=== PATIENT | female | born 1965 | race Hispanic/Latino ===

== ENCOUNTER 2021-11-11 11:22 | Inpatient (IN) | payer MEDICARE ==
--- NOTE | 2021-11-12 09:58 | History and Physical Report ---
GP History & Physical - History of Present Illness Date of admission: 11/11/21 Date of Examination: 11/12/21 Reason for Admission: Danger to self, Failure of Outpatient Treatment, Severe anxiety/depression History of Present Illness: The patient was seen today. She was admitted to [facility] for command auditory hallucinations telling her to kill herself and her grandchildren. During the evaluation the patient says "I can't focus and I'm hearing voices." She says "they were telling me to harm myself and my family, I guess." She says she has a history of Bipolar and has been off her meds. She says she is depressed. The patient says her doctor took her off and she doesn't know why. She says she hasn't been sleeping. She denies SI/HI, but says "it was the voices." The patient denies any illicit drug use, alcohol or nicotine. Psych History Diagnoses: Bipolar Suicide attempts or Self-harm behavior: Denies Prior psychiatric hospitalizations: Yes Substance Abuse history: Denies Previous psychiatric medications tried: could not recall Outpatient treatment: Denies at present PAST MEDICAL HISTORY: unknown Family Psychiatric History: None reported or documented SOCIAL HISTORY Marital Status: Living Arrangements: with daughter Employment Status: unemployed Access to guns/weapons: Denies Education: History of Abuse: none reported Legal History: none reported REVIEW OF SYSTEMS Constitutional: Negative for weight loss ENT: Negative for stridor Respiratory: Negative for cough or hemoptysis All other systems reviewed and are negative MENTAL STATUS EXAMINATION General Appearance and Behavior: Age appropriate, good hygiene, wearing appropriate clothes, calm, cooperative Cooperation: Participating/engaged Psychomotor Behavior: Tremors Mood: depressed Affect and affective range: congruent with mood Thought Process: illogical Thought Content: hallucinations Speech: Normal volume, Regular rate and rhythm, Suicidal Ideation: Yes Homicidal Ideation: Denies Hallucinations: Auditory Delusions: None elicited Impulse Control: impaired Insight and Judgment: poor insight and judgment, Memory: abnormal Attention: Normal Orientation: Alert, oriented Assessment and Plan (1) Bipolar Disorder Current Visit: Yes Status: Acute Treatment Plan Patient admitted for inpatient psychiatric evaluation, medication adjustment and close monitoring The patient's behavior, mood, sleep and appetite will be closely monitored. Patient enrolled in individual and group therapeutic sessions and encouraged to attend. Patient provided with a safe and structured environment. Patient's physical health needs will be addressed by the Hospitalist. Hospitalist Consulted Labs including CBC, CMP, Lipid profile and Hemoglobin A1C levels ordered for baseline reference Social Assessment will be completed and the Conventional Underwriter will work with patient and family to ensure a suitable and safe disposition Medication adjustment will be made as clinically indicated Continued home meds Start Abilify 5mg po daily Usual Wellness Protestant/Preservation: - Start Trazodone 50 mg po QHS & 50 mg po QHS PRN between 10 PM & 2 AM for insomnia - Start Melatonin 5 mg po QHS to promote circadian rhythm The patient agreed on the treatment plan, understood the risk, benefit, alternative treatment, potential consequence of no treatment, and gave informed consent. Estimated days: Post hospital care: primary care provider, psychiatric provider Case staffed with Dr. Villatoro Legal Status: Voluntary Reaction to Hospitalization: Accepting Medications and Allergies Allergies Allergy/AdvReac Type Severity Reaction Status Date / Time No Known Allergies Allergy Verified 11/12/21 00:28 Home Medications Medication Instructions Recorded Confirmed Last Taken Type Albuterol Sulfate [Proair 2 puff IH Q4HR PRN 11/12/21 11/12/21 Unknown History Digihaler] AtorvaSTATin [Lipitor] 20 mg PO QHS 11/12/21 11/12/21 Unknown History Dexlansoprazole [Dexilant] 60 mg PO QDAY 11/12/21 11/12/21 Unknown History Furosemide [Lasix] 20 mg PO QDAY 11/12/21 11/12/21 Unknown History Meloxicam [Mobic] 15 mg PO DAILY 11/12/21 11/12/21 Unknown History Sertraline [Zoloft] 100 mg PO QDAY 11/12/21 11/12/21 Unknown History lisinopriL [Zestril TAB] 40 mg PO QDAY 11/12/21 11/12/21 Unknown History Results - Results Labs/Vitals: Last Vital Signs Temp 98.3 F 11/12/21 00:15 Pulse 70 11/12/21 00:15 Resp 17 11/12/21 00:15 BP 122/51 11/12/21 00:15 Pulse Ox 95 11/12/21 00:15 Physical Examination - Constitutional Vitals: Vital Signs Temp Pulse Resp BP Pulse Ox 98.3 F 70 17 122/51 95 11/12/21 00:15 11/12/21 00:15 11/12/21 00:15 11/12/21 00:15 11/12/21 00:15 Temperature -Last 24 Hours Temperature 98.3 F Mental Status Exam - Vital signs Last Vital Signs Temp 98.3 F 11/12/21 00:15 Pulse 70 11/12/21 00:15 Resp 17 11/12/21 00:15 BP 122/51 11/12/21 00:15 Pulse Ox 95 11/12/21 00:15 Physician Certification - Certification Statement Physician Certification Statement: This is an acknowledgement statement that TIANNA MONROY is a 56 year old F who requires inpatient psychiatric admission for treatment which could reasonably be expected to improve the patient's condition for Estimated period of time patient will need to remain in the hospital: [ ] Plan for post-hospital care: [ ]
[2021-11-12] MEDS ORDERED: NON-FORMULARY EACH (Albuterol Sulfate [Proair Digihaler] 90 MCG Aer.Pw.Bas) IH PRN (10:05)
[2021-11-12] MEDS ORDERED: NON-FORMULARY EACH (Meloxicam [Mobic] 15 MG Tablet) PO SCH (10:15)
[2021-11-12] MEDS ORDERED: DEXLANSOPRAZOLE 60 MG PO SCH (10:15)
[2021-11-12] MEDS ORDERED: ALBUTEROL 2.5 MG/3 ML NEBU IH PRN ×2 (10:18→12:00)
[2021-11-12] MEDS: SERTRALINE 100 MG TAB PO SCH (12:36)
[2021-11-12] MEDS: ARIPiprazole 5 MG TAB PO SCH (12:36)
[2021-11-12] MEDS: FUROSEMIDE 20 MG TAB PO SCH (12:36)
[2021-11-12] MEDS: PANTOPRAZOLE 40 MG TAB PO SCH (12:42)
[2021-11-12] MEDS: LISINOPRIL 40 MG TAB PO SCH (16:00)
[2021-11-12] MEDS: MELOXICAM 7.5 MG TAB PO SCH (17:14)
--- NOTE | 2021-11-13 09:07 | Progress Note ---
Subjective Date of service: 11/13/21 Principal diagnosis: Bipolar Disorder Subjective Comment: The patient was seen today. She says she is doing alright. She says she's still hearing the voices telling her crazy stuff. She could not tell me what exactly. She denies SI/HI or hallucinations of any kind. REVIEW OF SYSTEMS Constitutional: Negative for weight loss ENT: Negative for stridor Respiratory: Negative for cough or hemoptysis All other systems reviewed and are negative MENTAL STATUS EXAMINATION General Appearance and Behavior: Age appropriate, good hygiene, wearing appropriate clothes, calm, cooperative Cooperation: Participating/engaged Psychomotor Behavior: Tremors Mood: depressed Affect and affective range: congruent with mood Thought Process: illogical Thought Content: hallucinations Speech: Normal volume, Regular rate and rhythm, Suicidal Ideation: Yes Homicidal Ideation: Denies Hallucinations: Auditory Delusions: None elicited Impulse Control: impaired Insight and Judgment: poor insight and judgment, Memory: abnormal Attention: Normal Orientation: Alert, oriented Assessment and Plan (1) Bipolar Disorder Current Visit: Yes Status: Acute Treatment Plan Patient admitted for inpatient psychiatric evaluation, medication adjustment and close monitoring The patient's behavior, mood, sleep and appetite will be closely monitored. Patient enrolled in individual and group therapeutic sessions and encouraged to attend. Patient provided with a safe and structured environment. Patient's physical health needs will be addressed by the Hospitalist. Hospitalist Consulted Labs including CBC, CMP, Lipid profile and Hemoglobin A1C levels ordered for baseline reference Social Assessment will be completed and the Technology Specialist will work with patient and family to ensure a suitable and safe disposition Medication adjustment will be made as clinically indicated Abilify 5mg po daily Usual Wellness Hindu/Preservation: - Start Trazodone 50 mg po QHS & 50 mg po QHS PRN between 10 PM & 2 AM for insomnia - Start Melatonin 5 mg po QHS to promote circadian rhythm The patient agreed on the treatment plan, understood the risk, benefit, alternative treatment, potential consequence of no treatment, and gave informed consent. Estimated days: Post hospital care: primary care provider, psychiatric provider Case staffed with Dr. Villatoro Medications and Allergies Allergies Allergy/AdvReac Type Severity Reaction Status Date / Time No Known Allergies Allergy Verified 11/12/21 00:28 Home Medications Medication Instructions Recorded Confirmed Last Taken Type Albuterol Sulfate [Proair 2 puff IH Q4HR PRN 11/12/21 11/12/21 Unknown History Digihaler] AtorvaSTATin [Lipitor] 20 mg PO QHS 11/12/21 11/12/21 Unknown History Dexlansoprazole [Dexilant] 60 mg PO QDAY 11/12/21 11/12/21 Unknown History Furosemide [Lasix] 20 mg PO QDAY 11/12/21 11/12/21 Unknown History Meloxicam [Mobic] 15 mg PO DAILY 11/12/21 11/12/21 Unknown History Sertraline [Zoloft] 100 mg PO QDAY 11/12/21 11/12/21 Unknown History lisinopriL [Zestril TAB] 40 mg PO QDAY 11/12/21 11/12/21 Unknown History Active Meds: Active Medications Albuterol (Albuterol 2.5 Mg/3 Ml Nebu) 2.5 mg IH Q4HRT PRN PRN Reason: Shortness Of Breath Aripiprazole (Aripiprazole 5 Mg Tab) 5 mg PO QDAY [facility] Last Admin: 11/12/21 12:36 Dose: 5 mg Atorvastatin Calcium (Atorvastatin 20 Mg Tab) 20 mg PO QHS [facility] Last Admin: 11/12/21 21:07 Dose: 20 mg Furosemide (Furosemide 20 Mg Tab) 20 mg PO QDAY [facility] Last Admin: 11/12/21 12:36 Dose: 20 mg Lisinopril (Lisinopril 40 Mg Tab) 40 mg PO QDAY [facility] Last Admin: 11/12/21 16:00 Dose: Not Given Meloxicam (Meloxicam 7.5 Mg Tab) 15 mg PO QDAY [facility] Last Admin: 11/12/21 17:14 Dose: 15 mg Pantoprazole Sodium (Pantoprazole 40 Mg Tab) 40 mg PO DAILY [facility] Last Admin: 11/12/21 12:42 Dose: 40 mg Sertraline HCl (Sertraline 100 Mg Tab) 100 mg PO QDAY [facility] Last Admin: 11/12/21 12:36 Dose: 100 mg Results - Results Labs/Vitals: Last Vital Signs Temp 98.5 F 11/12/21 20:00 Pulse 71 11/12/21 20:00 Resp 16 11/12/21 20:00 BP 122/41 11/12/21 20:00 Pulse Ox 98 11/12/21 20:00
--- NOTE | 2021-11-13 10:11 | Consultation ---
History of Present Illness - Reason for Consult Consult date: 11/12/21 medical Mx - History of Present Illness 56 YO Female with COPD, HTN, HLD, OA, QASIM, MDD, GERD admitted [facility] for psychiatric stabilization. She was admitted [facility] for command auditory hallucinations telling her to kill herself and her grandchildren. Hospitalist service was consulted by Dr. Appiah for medical management. Patient seen and evaluated in the recreation room. Patient denies fever, chill s, chest pain, palpitation, productive cough, skin rash, recent contact, known exposure to COVID-19. Patient resting comfortably. No reported nursing events. The patient denies any illicit drug use, alcohol or nicotine. Past medical History: h/o COPD, HTN, HLD, OA, QASIM, MDD, GERD Past surgical History: none Social History: Lives with daughter, denies any smoking, drinking and elicit drug abuse. Family History: Significant for HTN Review of System: Constitutional: no fever, no chills, no weight loss Ears, eyes, nose, mouth and throat: no nasal congestion, no nasal discharge, no sinus pressure, no vision change, no red eye. Neck: No neck pain or rigidity. Cardiovascular: No chest pain, no orthopnea, no palpitations, no leg swelling Respiratory: No shortness of breath, no cough, no congestion, no wheezing Gastrointestinal: no abdominal pain, no nausea, no vomiting Genitourinary : no dysuria, no hematuria Musculoskeletal: no joint swelling or muscle ache Integumentary: no rash, no pruritis Neurological: no parathesias, no numbness, no tingling Endocrine: no cold or heat intolerance, no polyuria or polydipsia Hematologic/Lymphatic: no easy bruising, no easy bleeding, no gland swelling Allergic/Immunologic: no urticaria, no angioedema. Physical exam: GENERAL: well-developed and well-nourished AAF w/o any acute distress HEENT: Normocephalic. Atraumatic. No conjunctival congestion or icterus. Patient has moist mucous membranes. NECK: Supple. Trachea midline. CHEST/LUNGS: Clear to auscultated bilaterally, breathing nonlabored. No wheezes crackles or rhonchi. HEART/CARDIOVASCULAR: Regular in rate and rhythm. S1 and S2 positive. ABDOMEN: Abdomen is soft, nontender. Patient has normal bowel sounds. SKIN: There is no rash. Warm and dry. NEURO: No focal motor deficit. Follows command. MUSCULOSKELETAL: No joint effusion or tenderness. EXTRIMITY: No edema, no cyanosis or clubbing. PSYCH: Cooperative. Assessment and plan: --Bipolar disorder, Mx per primary -- COPD (chronic obstructive pulmonary disease) Current Visit: Yes Status: Acute Plan to address problem: Supportive care, pulmonary toilet, supplemental oxygen as clinically indicated. -- HTN (hypertension) Current Visit: Yes Status: Acute Qualifiers: Hypertension type: primary hypertension Qualified Code(s): I10 - Essential (primary) hypertension Plan to address problem: Monitor blood pressure nightly. Continue medical management. -- QASIM (generalized anxiety disorder) Current Visit: Yes Status: Acute Plan to address problem: Benzodiazepine therapy as clinically indicated. -- Advance care planning Current Visit: Yes Status: Acute Plan to address problem: Disease education conducted, care plan discussed, diagnoses discussed, prognosis discussed, patient is full code. Patient knowledges understanding agreement with care plan, +30 minutes. Medications and Allergies Allergies Allergy/AdvReac Type Severity Reaction Status Date / Time No Known Allergies Allergy Verified 11/12/21 00:28 Home Medications Medication Instructions Recorded Confirmed Last Taken Type Albuterol Sulfate [Proair 2 puff IH Q4HR PRN 11/12/21 11/12/21 Unknown History Digihaler] AtorvaSTATin [Lipitor] 20 mg PO QHS 11/12/21 11/12/21 Unknown History Dexlansoprazole [Dexilant] 60 mg PO QDAY 11/12/21 11/12/21 Unknown History Furosemide [Lasix] 20 mg PO QDAY 11/12/21 11/12/21 Unknown History Meloxicam [Mobic] 15 mg PO DAILY 11/12/21 11/12/21 Unknown History Sertraline [Zoloft] 100 mg PO QDAY 11/12/21 11/12/21 Unknown History lisinopriL [Zestril TAB] 40 mg PO QDAY 11/12/21 11/12/21 Unknown History Tiotropium [Spiriva] 2 mcg IH DAILY 11/13/21 11/13/21 Unknown History Active Meds: Active Medications Albuterol (Albuterol 2.5 Mg/3 Ml Nebu) 2.5 mg IH Q4HRT PRN PRN Reason: Shortness Of Breath Aripiprazole (Aripiprazole 5 Mg Tab) 5 mg PO QDAY [facility] Last Admin: 11/12/21 12:36 Dose: 5 mg Atorvastatin Calcium (Atorvastatin 20 Mg Tab) 20 mg PO QHS [facility] Last Admin: 11/12/21 21:07 Dose: 20 mg Furosemide (Furosemide 20 Mg Tab) 20 mg PO QDAY [facility] Last Admin: 11/12/21 12:36 Dose: 20 mg Lisinopril (Lisinopril 40 Mg Tab) 40 mg PO QDAY [facility] Last Admin: 11/12/21 16:00 Dose: Not Given Meloxicam (Meloxicam 7.5 Mg Tab) 15 mg PO QDAY [facility] Last Admin: 11/12/21 17:14 Dose: 15 mg Pantoprazole Sodium (Pantoprazole 40 Mg Tab) 40 mg PO DAILY [facility] Last Admin: 11/12/21 12:42 Dose: 40 mg Sertraline HCl (Sertraline 100 Mg Tab) 100 mg PO QDAY [facility] Last Admin: 11/12/21 12:36 Dose: 100 mg Exam - Constitutional Vitals: Temp Pulse Resp BP Pulse Ox 98.5 F 71 16 122/41 98 11/12/21 20:00 11/12/21 20:00 11/12/21 20:00 11/12/21 20:00 11/12/21 20:00
[2021-11-13] MEDS: ARIPiprazole 5 MG TAB PO SCH (10:24)
[2021-11-13] MEDS: SERTRALINE 100 MG TAB PO SCH (10:24)
[2021-11-13] MEDS: MELOXICAM 7.5 MG TAB PO SCH (10:24)
[2021-11-13] MEDS: FUROSEMIDE 20 MG TAB PO SCH (10:24)
[2021-11-13] MEDS: LISINOPRIL 40 MG TAB PO SCH (10:24)
[2021-11-13] MEDS: PANTOPRAZOLE 40 MG TAB PO SCH (10:25)
[2021-11-13] MEDS: ACETAMINOPHEN 325 MG TAB PO PRN (21:58)
--- NOTE | 2021-11-14 09:20 | Progress Note ---
Subjective Date of service: 11/14/21 Principal diagnosis: Bipolar Disorder Subjective Comment: The patient was seen today. She is lying in bed but awake. She says she's doing okay. The patient says she slept good. She denies SI/HI or hallucinations of any kind. REVIEW OF SYSTEMS Constitutional: Negative for weight loss ENT: Negative for stridor Respiratory: Negative for cough or hemoptysis All other systems reviewed and are negative MENTAL STATUS EXAMINATION General Appearance and Behavior: Age appropriate, good hygiene, wearing appropriate clothes, calm, cooperative Cooperation: Participating/engaged Psychomotor Behavior: Tremors Mood: depressed Affect and affective range: congruent with mood Thought Process: goal directed Thought Content: None Speech: Normal volume, Regular rate and rhythm, Suicidal Ideation: Denies Homicidal Ideation: Denies Hallucinations: Denies Delusions: None elicited Impulse Control: impaired Insight and Judgment: poor insight and judgment, Memory: abnormal Attention: Normal Orientation: Alert, oriented Assessment and Plan (1) Bipolar Disorder Current Visit: Yes Status: Acute Treatment Plan Patient admitted for inpatient psychiatric evaluation, medication adjustment and close monitoring The patient's behavior, mood, sleep and appetite will be closely monitored. Patient enrolled in individual and group therapeutic sessions and encouraged to attend. Patient provided with a safe and structured environment. Patient's physical health needs will be addressed by the Hospitalist. Hospitalist Consulted Labs including CBC, CMP, Lipid profile and Hemoglobin A1C levels ordered for baseline reference Social Assessment will be completed and the Host/Hostess Restaurant will work with p atient and family to ensure a suitable and safe disposition Medication adjustment will be made as clinically indicated Continue Abilify 5mg po daily Usual Wellness Temple/Preservation: - Start Trazodone 50 mg po QHS & 50 mg po QHS PRN between 10 PM & 2 AM for insomnia - Start Melatonin 5 mg po QHS to promote circadian rhythm The patient agreed on the treatment plan, understood the risk, benefit, alternative treatment, potential consequence of no treatment, and gave informed consent. Estimated days: Post hospital care: primary care provider, psychiatric provider Case staffed with Dr. Villatoro Medications and Allergies Allergies Allergy/AdvReac Type Severity Reaction Status Date / Time No Known Allergies Allergy Verified 11/12/21 00:28 Home Medications Medication Instructions Recorded Confirmed Last Taken Type Albuterol Sulfate [Proair 2 puff IH Q4HR PRN 11/12/21 11/12/21 Unknown History Digihaler] AtorvaSTATin [Lipitor] 20 mg PO QHS 11/12/21 11/12/21 Unknown History Dexlansoprazole [Dexilant] 60 mg PO QDAY 11/12/21 11/12/21 Unknown History Furosemide [Lasix] 20 mg PO QDAY 11/12/21 11/12/21 Unknown History Meloxicam [Mobic] 15 mg PO DAILY 11/12/21 11/12/21 Unknown History Sertraline [Zoloft] 100 mg PO QDAY 11/12/21 11/12/21 Unknown History lisinopriL [Zestril TAB] 40 mg PO QDAY 11/12/21 11/12/21 Unknown History Tiotropium [Spiriva] 2 mcg IH DAILY 11/13/21 11/13/21 Unknown History Active Meds: Active Medications Acetaminophen (Acetaminophen 325 Mg Tab) 650 mg PO Q6H PRN PRN Reason: Pain, Mild (1-3) Last Admin: 11/13/21 21:58 Dose: 650 mg Albuterol (Albuterol 2.5 Mg/3 Ml Nebu) 2.5 mg IH Q4HRT PRN PRN Reason: Shortness Of Breath Last Admin: 11/13/21 12:45 Dose: 2.5 mg Aripiprazole (Aripiprazole 5 Mg Tab) 5 mg PO QDAY [facility] Last Admin: 11/13/21 10:24 Dose: 5 mg Atorvastatin Calcium (Atorvastatin 20 Mg Tab) 20 mg PO QHS [facility] Last Admin: 11/13/21 21:59 Dose: 20 mg Furosemide (Furosemide 20 Mg Tab) 20 mg PO QDAY [facility] Last Admin: 11/13/21 10:24 Dose: 20 mg Lisinopril (Lisinopril 40 Mg Tab) 40 mg PO QDAY [facility] Last Admin: 11/13/21 10:24 Dose: 40 mg Meloxicam (Meloxicam 7.5 Mg Tab) 15 mg PO QDAY [facility] Last Admin: 11/13/21 10:24 Dose: 15 mg Pantoprazole Sodium (Pantoprazole 40 Mg Tab) 40 mg PO DAILY [facility] Last Admin: 11/13/21 10:25 Dose: 40 mg Sertraline HCl (Sertraline 100 Mg Tab) 100 mg PO QDAY [facility] Last Admin: 11/13/21 10:24 Dose: 100 mg Tiotropium [place] (Tiotropium 18 Mcg Cap Inhalation) 1 puff IH Q24HRT [facility] Results - Results Labs/Vitals: Last Vital Signs Temp 97.5 F L 11/14/21 07:47 Pulse 70 11/14/21 07:47 Resp 18 11/14/21 07:47 BP 112/55 11/14/21 07:47 Pulse Ox 97 11/14/21 07:47
[2021-11-14] MEDS: TIOTROPIUM 18 MCG CAP INHALATION IH SCH (09:50)
[2021-11-14] MEDS: LISINOPRIL 40 MG TAB PO SCH (09:51)
[2021-11-14] MEDS: FUROSEMIDE 20 MG TAB PO SCH (09:51)
[2021-11-14] MEDS: ARIPiprazole 5 MG TAB PO SCH (09:51)
[2021-11-14] MEDS: MELOXICAM 7.5 MG TAB PO SCH (09:51)
[2021-11-14] MEDS: SERTRALINE 100 MG TAB PO SCH (09:51)
[2021-11-14] MEDS: PANTOPRAZOLE 40 MG TAB PO SCH (09:51)
--- NOTE | 2021-11-14 19:39 | Progress Note ---
Assessment and Plan - Patient Problems (1) COPD (chronic obstructive pulmonary disease) Current Visit: Yes Status: Acute Plan to address problem: Supportive care, pulmonary toilet, supplemental oxygen as clinically indicated. (2) HTN (hypertension) Current Visit: Yes Status: Acute Qualifiers: Hypertension type: primary hypertension Qualified Code(s): I10 - Essential (primary) hypertension Plan to address problem: Monitor blood pressure nightly. Continue medical management. (3) QASIM (generalized anxiety disorder) Current Visit: Yes Status: Acute Plan to address problem: Benzodiazepine therapy as clinically indicated. (4) MDD (major depressive disorder) Current Visit: Yes Status: Acute Qualifiers: Major depression episode severity: unspecified Plan to address problem: Supportive care, continue medical management as per mental health team (5) Advance care planning Current Visit: Yes Status: Acute Plan to address problem: Disease education conducted, care plan discussed, diagnoses discussed, prognosis discussed, patient is full code. Patient knowledges understanding agreement with care plan, +30 minutes. History Interval history: 56 YO Female with COPD, HTN, HLD, OA, QASIM, MDD, GERD admitted [facility] for psychiatric stabilization. Consult placed with Dr. Appiah for medical management. Patient seen and evaluated in the recreation room. Patient denies fever, chills, chest pain, palpitation, productive cough, skin rash, recent contact, known exposure to COVID-19. Patient resting comfortably. No reported nursing events. Hospitalist Physical - Constitutional Vitals: Temp Pulse Resp BP Pulse Ox 97.5 F L 70 19 112/55 97 11/14/21 07:47 11/14/21 09:51 11/14/21 09:51 11/14/21 09:51 11/14/21 07:47 General appearance: Present: no acute distress - EENT Eyes: Present: PERRL ENT: hearing intact - Neck Neck: Present: supple - Respiratory Respiratory effort: normal Respiratory: bilateral: diminished - Cardiovascular Rhythm: regular Heart Sounds: Present: S1 & S2 - Extremities Extremities: no ischemia Peripheral Pulses: within normal limits - Abdominal General gastrointestinal: soft, non-tender, non-distended - Integumentary Integumentary: Present: clear, dry - Psychiatric Psychiatric: cooperative - Neurologic Neurologic: CNII-XII intact Results Dyre/IV: Voiding Method Toilet Active Medications - Current Medications Current Medications: Generic Name Dose Route Start Last Admin Trade Name Freq PRN Reason Stop Dose Admin Acetaminophen 650 mg 11/13/21 20:58 11/13/21 21:58 Acetaminophen 325 Mg Tab PO 650 mg Q6H PRN Administration Pain, Mild (1-3) Albuterol 2.5 mg 11/12/21 12:00 11/13/21 12:45 Albuterol 2.5 Mg/3 Ml Nebu IH 2.5 mg Q4HRT PRN Administration Shortness Of Breath Aripiprazole 5 mg 11/12/21 11:00 11/14/21 09:51 Aripiprazole 5 Mg Tab PO 5 mg QDAY [facility] Administration Atorvastatin Calcium 20 mg 11/12/21 22:00 11/13/21 21:59 Atorvastatin 20 Mg Tab PO 20 mg QHS [facility] Administration Furosemide 20 mg 11/12/21 11:00 11/14/21 09:51 Furosemide 20 Mg Tab PO 20 mg QDAY [facility] Administration Lisinopril 40 mg 11/12/21 11:00 11/14/21 09:51 Lisinopril 40 Mg Tab PO Not Given QDAY [facility] Meloxicam 15 mg 11/12/21 11:00 11/14/21 09:51 Meloxicam 7.5 Mg Tab PO 15 mg QDAY [facility] Administration Pantoprazole Sodium 40 mg 11/12/21 11:00 11/14/21 09:51 Pantoprazole 40 Mg Tab PO 40 mg DAILY [facility] Administration Sertraline HCl 100 mg 11/12/21 11:00 11/14/21 09:51 Sertraline 100 Mg Tab PO 100 mg QDAY [facility] Administration Tiotropium [place] 1 puff 11/14/21 09:00 11/14/21 09:50 Tiotropium 18 Mcg Cap Inhalation IH 1 puff Q24HRT [facility] Administration
--- NOTE | 2021-11-15 08:38 | Progress Note ---
Subjective Date of service: 11/15/21 Principal diagnosis: Bipolar Disorder Subjective Comment: 11/15/21: The patient was seen this morning. She states she is doing well. She reports sleep and appetite as good. She reports being depressed and rates as 7/10. The patient complains of constipation stating she last had a bowel movement 4 days ago. She denies any current suicidal/homicidal and denies hallucinations. REVIEW OF SYSTEMS Constitutional: Negative for weight loss ENT: Negative for stridor Respiratory: Negative for cough or hemoptysis All other systems reviewed and are negative MENTAL STATUS EXAMINATION General Appearance and Behavior: Age appropriate, good hygiene, wearing appropriate clothes, calm, cooperative Cooperation: Participating/engaged Psychomotor Behavior: Tremors Mood: depressed Affect and affective range: congruent with mood Thought Process: Goal directed Thought Content: Reality oriented Speech: Normal volume, Regular rate and rhythm, Suicidal Ideation: Denies Homicidal Ideation: Denies Hallucinations: Denies Delusions: None elicited Impulse Control: impaired Insight and Judgment: poor insight and judgment, Memory: abnormal Attention: Normal Orientation: Alert, oriented Assessment and Plan (1) Bipolar Disorder Current Visit: Yes Status: Acute Treatment Plan Patient admitted for inpatient psychiatric evaluation, medication adjustment and close monitoring The patient's behavior, mood, sleep and appetite will be closely monitored. Patient enrolled in individual and group therapeutic sessions and encouraged to attend. Patient provided with a safe and structured environment. Patient's physical health needs will be addressed by the Hospitalist. Hospitalist Consulted Labs including CBC, CMP, Lipid profile and Hemoglobin A1C levels ordered for baseline reference Social Assessment will be completed and the Jewel Bearing Grinder will work with patient and family to ensure a suitable and safe disposition Medication adjustment will be made as clinically indicated Increase Abilify 10mg po daily Usual Wellness [facility]: - Start Trazodone 50 mg po QHS & 50 mg po QHS PRN between 10 PM & 2 AM for insomnia - Start Melatonin 5 mg po QHS to promote circadian rhythm The patient agreed on the treatment plan, understood the risk, benefit, alternative treatment, potential consequence of no treatment, and gave informed consent. Estimated days: Post hospital care: primary care provider, psychiatric provider Case staffed with Dr. Villatoro Medications and Allergies Medications and Allergies Allergies Allergy/AdvReac Type Severity Reaction Status Date / Time No Known Allergies Allergy Verified 11/12/21 00:28 Home Medications Medication Instructions Recorded Confirmed Last Taken Type Albuterol Sulfate [Proair 2 puff IH Q4HR PRN 11/12/21 11/12/21 Unknown History Digihaler] AtorvaSTATin [Lipitor] 20 mg PO QHS 11/12/21 11/12/21 Unknown History Dexlansoprazole [Dexilant] 60 mg PO QDAY 11/12/21 11/12/21 Unknown History Furosemide [Lasix] 20 mg PO QDAY 11/12/21 11/12/21 Unknown History Meloxicam [Mobic] 15 mg PO DAILY 11/12/21 11/12/21 Unknown History Sertraline [Zoloft] 100 mg PO QDAY 11/12/21 11/12/21 Unknown History lisinopriL [Zestril TAB] 40 mg PO QDAY 11/12/21 11/12/21 Unknown History Tiotropium [Spiriva] 2 mcg IH DAILY 11/13/21 11/13/21 Unknown History Active Meds: Active Medications Acetaminophen (Acetaminophen 325 Mg Tab) 650 mg PO Q6H PRN PRN Reason: Pain, Mild (1-3) Last Admin: 11/13/21 21:58 Dose: 650 mg Albuterol (Albuterol 2.5 Mg/3 Ml Nebu) 2.5 mg IH Q4HRT PRN PRN Reason: Shortness Of Breath Last Admin: 11/13/21 12:45 Dose: 2.5 mg Aripiprazole (Aripiprazole 5 Mg Tab) 5 mg PO QDAY [facility] Last Admin: 11/14/21 09:51 Dose: 5 mg Atorvastatin Calcium (Atorvastatin 20 Mg Tab) 20 mg PO QHS [facility] Last Admin: 11/14/21 21:29 Dose: 20 mg Furosemide (Furosemide 20 Mg Tab) 20 mg PO QDAY [facility] Last Admin: 11/14/21 09:51 Dose: 20 mg Lisinopril (Lisinopril 40 Mg Tab) 40 mg PO QDAY [facility] Last Admin: 11/14/21 09:51 Dose: Not Given Meloxicam (Meloxicam 7.5 Mg Tab) 15 mg PO QDAY [facility] Last Admin: 11/14/21 09:51 Dose: 15 mg Pantoprazole Sodium (Pantoprazole 40 Mg Tab) 40 mg PO DAILY [facility] Last Admin: 11/14/21 09:51 Dose: 40 mg Sertraline HCl (Sertraline 100 Mg Tab) 100 mg PO QDAY [facility] Last Admin: 11/14/21 09:51 Dose: 100 mg Tiotropium [place] (Tiotropium 18 Mcg Cap Inhalation) 1 puff IH Q24HRT [facility] Last Admin: 11/14/21 09:50 Dose: 1 puff Results - Results Labs/Vitals: Last Vital Signs Temp 98.9 F 11/14/21 19:28 Pulse 71 11/14/21 19:28 Resp 18 11/14/21 19:28 BP 125/48 11/14/21 19:28 Pulse Ox 95 11/14/21 19:28
[2021-11-15] MEDS: PANTOPRAZOLE 40 MG TAB PO SCH (10:27)
[2021-11-15] MEDS: FUROSEMIDE 20 MG TAB PO SCH (10:27)
[2021-11-15] MEDS: ARIPiprazole 10 MG TAB PO SCH (10:27)
[2021-11-15] MEDS: SERTRALINE 100 MG TAB PO SCH (10:27)
[2021-11-15] MEDS: TIOTROPIUM 18 MCG CAP INHALATION IH SCH (10:28)
[2021-11-15] MEDS: MELOXICAM 7.5 MG TAB PO SCH (10:28)
[2021-11-15] MEDS: LISINOPRIL 40 MG TAB PO SCH (12:06)
[2021-11-16] MEDS: FUROSEMIDE 20 MG TAB PO SCH (09:10)
[2021-11-16] MEDS: ARIPiprazole 10 MG TAB PO SCH (09:10)
[2021-11-16] MEDS: MELOXICAM 7.5 MG TAB PO SCH (09:10)
[2021-11-16] MEDS: LISINOPRIL 40 MG TAB PO SCH (09:11)
[2021-11-16] MEDS: SERTRALINE 100 MG TAB PO SCH (09:11)
[2021-11-16] MEDS: PANTOPRAZOLE 40 MG TAB PO SCH (09:11)
[2021-11-16] MEDS: TIOTROPIUM 18 MCG CAP INHALATION IH SCH (09:13)
--- NOTE | 2021-11-16 09:24 | Progress Note ---
Subjective Date of service: 11/16/21 Principal diagnosis: Bipolar Disorder Subjective Comment: 11/16/21: The patient was seen resting in bed. She states she is not doing well today. Continues to endorse depression rating as 7/10. She denies any current suicidal/homicidal and denies hallucinations. 11/15/21: The patient was seen this morning. She states she is doing well. She reports sleep and appetite as good. She reports being depressed and rates as 7/10. The patient complains of constipation stating she last had a bowel movement 4 days ago. She denies any current suicidal/homicidal and denies hallucinations. REVIEW OF SYSTEMS Constitutional: Negative for weight loss ENT: Negative for stridor Respiratory: Negative for cough or hemoptysis All other systems reviewed and are negative MENTAL STATUS EXAMINATION General Appearance and Behavior: Age appropriate, good hygiene, wearing appropriate clothes, calm, cooperative Cooperation: Participating/engaged Psychomotor Behavior: Tremors Mood: depressed Affect and affective range: congruent with mood Thought Process: Goal directed Thought Content: Reality oriented Speech: Normal volume, Regular rate and rhythm, Suicidal Ideation: Denies Homicidal Ideation: Denies Hallucinations: Denies Delusions: None elicited Impulse Control: impaired Insight and Judgment: poor insight and judgment, Memory: abnormal Attention: Normal Orientation: Alert, oriented Assessment and Plan (1) Bipolar Disorder Current Visit: Yes Status: Acute Treatment Plan Patient admitted for inpatient psychiatric evaluation, medication adjustment and close monitoring The patient's behavior, mood, sleep and appetite will be closely monitored. Patient enrolled in individual and group therapeutic sessions and encouraged to attend. Patient provided with a safe and structured environment. Patient's physical health needs will be addressed by the Hospitalist. Hospitalist Consulted Labs including CBC, CMP, Lipid profile and Hemoglobin A1C levels ordered for baseline reference Social Assessment will be completed and the Product Builder will work with patie nt and family to ensure a suitable and safe disposition Medication adjustment will be made as clinically indicated Increase Abilify 10mg po daily Usual Wellness [facility]: - Start Trazodone 50 mg po QHS & 50 mg po QHS PRN between 10 PM & 2 AM for insomnia - Start Melatonin 5 mg po QHS to promote circadian rhythm The patient agreed on the treatment plan, understood the risk, benefit, alternative treatment, potential consequence of no treatment, and gave informed consent. Estimated days: Post hospital care: primary care provider, psychiatric provider Case staffed with Dr. Villatoro Medications and Allergies Medications and Allergies Medications and Allergies Allergies Allergy/AdvReac Type Severity Reaction Status Date / Time No Known Allergies Allergy Verified 11/12/21 00:28 Home Medications Medication Instructions Recorded Confirmed Last Taken Type Albuterol Sulfate [Proair 2 puff IH Q4HR PRN 11/12/21 11/12/21 Unknown History Digihaler] AtorvaSTATin [Lipitor] 20 mg PO QHS 11/12/21 11/12/21 Unknown History Dexlansoprazole [Dexilant] 60 mg PO QDAY 11/12/21 11/12/21 Unknown History Furosemide [Lasix] 20 mg PO QDAY 11/12/21 11/12/21 Unknown History Meloxicam [Mobic] 15 mg PO DAILY 11/12/21 11/12/21 Unknown History Sertraline [Zoloft] 100 mg PO QDAY 11/12/21 11/12/21 Unknown History lisinopriL [Zestril TAB] 40 mg PO QDAY 11/12/21 11/12/21 Unknown History Tiotropium [Spiriva] 2 mcg IH DAILY 11/13/21 11/13/21 Unknown History Active Meds: Active Medications Acetaminophen (Acetaminophen 325 Mg Tab) 650 mg PO Q6H PRN PRN Reason: Pain, Mild (1-3) Last Admin: 11/13/21 21:58 Dose: 650 mg Albuterol (Albuterol 2.5 Mg/3 Ml Nebu) 2.5 mg IH Q4HRT PRN PRN Reason: Shortness Of Breath Last Admin: 11/13/21 12:45 Dose: 2.5 mg Aripiprazole (Aripiprazole 10 Mg Tab) 10 mg PO QDAY [facility] Last Admin: 11/16/21 09:10 Dose: 10 mg Atorvastatin Calcium (Atorvastatin 20 Mg Tab) 20 mg PO QHS [facility] Last Admin: 11/15/21 21:05 Dose: 20 mg Bisacodyl (Bisacodyl 5 Mg Tab) 10 mg PO QDAY PRN PRN Reason: Constipation Last Admin: 11/15/21 15:49 Dose: 10 mg Furosemide (Furosemide 20 Mg Tab) 20 mg PO QDAY [facility] Last Admin: 11/16/21 09:10 Dose: 20 mg Lisinopril (Lisinopril 40 Mg Tab) 40 mg PO QDAY [facility] Last Admin: 11/16/21 09:11 Dose: 40 mg Meloxicam (Meloxicam 7.5 Mg Tab) 15 mg PO QDAY [facility] Last Admin: 11/16/21 09:10 Dose: 15 mg Pantoprazole Sodium (Pantoprazole 40 Mg Tab) 40 mg PO DAILY [facility] Last Admin: 11/16/21 09:11 Dose: 40 mg Sertraline HCl (Sertraline 100 Mg Tab) 100 mg PO QDAY [facility] Last Admin: 11/16/21 09:11 Dose: 100 mg Tiotropium [place] (Tiotropium 18 Mcg Cap Inhalation) 1 puff IH Q24HRT [facility] Last Admin: 11/16/21 09:13 Dose: 1 puff Results - Results Labs/Vitals: Last Vital Signs Temp 98.2 F 11/16/21 07:36 Pulse 76 11/15/21 19:36 Resp 18 11/16/21 07:36 BP 146/50 11/16/21 07:36 Pulse Ox 96 11/15/21 19:36
[2021-11-16] MEDS: ACETAMINOPHEN 325 MG TAB PO PRN (15:40)
[2021-11-16] MEDS ORDERED: MAGNESIUM HYDROXIDE (MOM) ORAL LIQD UDC PO ONE (18:02)
[2021-11-16] MEDS ORDERED: MAGNESIUM HYDROXIDE (MOM) ORAL LIQD UDC PO PRN (18:02)
--- NOTE | 2021-11-16 18:08 | Progress Note ---
Assessment and Plan Assessment and plan: --Constipation; Plenty of oral fluids, milk of magnesia 30 mL 1 dose And daily as needed for constipation If no improvement after 2 doses, patient may need enema -- COPD (chronic obstructive pulmonary disease) Supportive care, pulmonary toilet, supplemental oxygen as clinically indicated. --HTN (hypertension) Monitor blood pressure nightly. Continue medical management. --QASIM (generalized anxiety disorder) Benzodiazepine therapy as clinically indicated. -- MDD (major depressive disorder) Supportive care, continue medical management as per mental health team --Advance care planning Plan of care reviewed with patient and her nurse Will monitor closely and adjust management as needed Call us with questions History Interval history: I have seen and examined the patient at the bedside Patient's chart and medications reviewed Patient complains of constipation of 4 days not relieved by Dulcolax Hospitalist Physical - Constitutional Vitals: Temp Pulse Resp BP Pulse Ox 98.2 F 76 18 146/50 96 11/16/21 07:36 11/15/21 19:36 11/16/21 07:36 11/16/21 07:36 11/15/21 19:36 General appearance: Present: no acute distress, well-nourished, obese (Morbidly obese) - EENT Eyes: Present: PERRL, EOM intact - Neck Neck: Present: supple, enlarged thyroid - Respiratory Respiratory effort: normal Respiratory: bilateral: diminished, negative: rales, rhonchi, wheezing - Cardiovascular Rhythm: regular Heart Sounds: Present: S1 & S2 - Extremities Extremities: no ischemia, No edema - Abdominal General gastrointestinal: soft, non-tender, non-distended, normal bowel sounds - Integumentary Integumentary: Present: clear, warm - Psychiatric Psychiatric: appropriate mood/affect, cooperative - Neurologic Neurologic: CNII-XII intact, moves all extremities Results [place]/IV: Voiding Method Toilet Active Medications - Current Medications Current Medications: Generic Name Dose Route Start Last Admin Trade Name Freq PRN Reason Stop Dose Admin Acetaminophen 650 mg 11/13/21 20:58 11/16/21 15:40 Acetaminophen 325 Mg Tab PO 650 mg Q6H PRN Administration Pain, Mild (1-3) Albuterol 2.5 mg 11/12/21 12:00 11/13/21 12:45 Albuterol 2.5 Mg/3 Ml Nebu IH 2.5 mg Q4HRT PRN Administration Shortness Of Breath Aripiprazole 10 mg 11/15/21 10:00 11/16/21 09:10 Aripiprazole 10 Mg Tab PO 10 mg QDAY [facility] Administration Atorvastatin Calcium 20 mg 11/12/21 22:00 11/15/21 21:05 Atorvastatin 20 Mg Tab PO 20 mg QHS [facility] Administration Bisacodyl 10 mg 11/15/21 10:00 11/16/21 16:30 Bisacodyl 5 Mg Tab PO 10 mg QDAY PRN Administration Constipation Furosemide 20 mg 11/12/21 11:00 11/16/21 09:10 Furosemide 20 Mg Tab PO 20 mg QDAY [facility] Administration Lisinopril 40 mg 11/12/21 11:00 11/16/21 09:11 Lisinopril 40 Mg Tab PO 40 mg QDAY [facility] Administration Magnesium Hydroxide 30 ml 11/16/21 18:02 Magnesium Hydroxide (Mom) Oral Liqd Udc PO 11/16/21 18:03 ONCE ONE Magnesium Hydroxide 30 ml 11/16/21 18:02 Magnesium Hydroxide (Mom) Oral Liqd Udc PO QDAY PRN Constipation Meloxicam 15 mg 11/12/21 11:00 11/16/21 09:10 Meloxicam 7.5 Mg Tab PO 15 mg QDAY [facility] Administration Pantoprazole Sodium 40 mg 11/12/21 11:00 11/16/21 09:11 Pantoprazole 40 Mg Tab PO 40 mg DAILY [facility] Administration Sertraline HCl 100 mg 11/12/21 11:00 11/16/21 09:11 Sertraline 100 Mg Tab PO 100 mg QDAY [facility] Administration Tiotropium [place] 1 puff 11/14/21 09:00 11/16/21 09:13 Tiotropium 18 Mcg Cap Inhalation IH 1 puff Q24HRT [facility] Administration
[2021-11-17] MEDS: MELATONIN 5 MG TAB PO PRN ×2 (03:45→21:38)
--- NOTE | 2021-11-17 09:26 | Progress Note ---
Subjective Date of service: 11/17/21 Principal diagnosis: Bipolar Disorder Subjective Comment: 11/17/21: The patient was seen at breakfast. The patient is isolative. Continues to endorse depression rating as 6/10. She denies any current suicidal/homicidal and denies hallucinations. 11/16/21: The patient was seen resting in bed. She states she is not doing well today. Continues to endorse depression rating as 7/10. She denies any current suicidal/homicidal and denies hallucinations. 11/15/21: The patient was seen this morning. She states she is doing well. She reports sleep and appetite as good. She reports being depressed and rates as 7/10. The patient complains of constipation stating she last had a bowel movement 4 days ago. She denies any current suicidal/homicidal and denies hallucinations. REVIEW OF SYSTEMS Constitutional: Negative for weight loss ENT: Negative for stridor Respiratory: Negative for cough or hemoptysis All other systems reviewed and are negative MENTAL STATUS EXAMINATION General Appearance and Behavior: Age appropriate, good hygiene, wearing appropriate clothes, calm, cooperative Cooperation: Participating/engaged Psychomotor Behavior: Tremors Mood: depressed Affect and affective range: congruent with mood Thought Process: Goal directed Thought Content: Reality oriented Speech: Normal volume, Regular rate and rhythm, Suicidal Ideation: Denies Homicidal Ideation: Denies Hallucinations: Denies Delusions: None elicited Impulse Control: impaired Insight and Judgment: poor insight and judgment, Memory: abnormal Attention: Normal Orientation: Alert, oriented Assessment and Plan (1) Bipolar Disorder Current Visit: Yes Status: Acute Treatment Plan Patient admitted for inpatient psychiatric evaluation, medication adjustment and close monitoring The patient's behavior, mood, sleep and appetite will be closely monitored. Patient enrolled in individual and group therapeutic sessions and encouraged to attend. Patient provided with a safe and structured environment. Patient's physical health needs will be addressed by the Hospitalist. Hospitalist Consulted Labs including CBC, CMP, Lipid profile and Hemoglobin A1C levels ordered for baseline reference Social Assessment will be completed and the Skein Mercerizing Machine Operator will work with patient and family to ensure a suitable and safe disposition Medication adjustment will be made as clinically indicated Increase Abilify 10mg po daily Usual Wellness [facility]/Preservation: - Start Trazodone 50 mg po QHS & 50 mg po QHS PRN between 10 PM & 2 AM for insomnia - Start Melatonin 5 mg po QHS to promote circadian rhythm The patient agreed on the treatment plan, understood the risk, benefit, alternative treatment, potential consequence of no treatment, and gave informed consent. Estimated days: Post hospital care: primary care provider, psychiatric provider Case staffed with Dr. Villatoro Medications and Allergies Medications and Allergies Allergies Allergy/AdvReac Type Severity Reaction Status Date / Time No Known Allergies Allergy Verified 11/12/21 00:28 Home Medications Medication Instructions Recorded Confirmed Last Taken Type Albuterol Sulfate [Proair 2 puff IH Q4HR PRN 11/12/21 11/12/21 Unknown History Digihaler] AtorvaSTATin [Lipitor] 20 mg PO QHS 11/12/21 11/12/21 Unknown History Dexlansoprazole [Dexilant] 60 mg PO QDAY 11/12/21 11/12/21 Unknown History Furosemide [Lasix] 20 mg PO QDAY 11/12/21 11/12/21 Unknown History Meloxicam [Mobic] 15 mg PO DAILY 11/12/21 11/12/21 Unknown History Sertraline [Zoloft] 100 mg PO QDAY 11/12/21 11/12/21 Unknown History lisinopriL [Zestril TAB] 40 mg PO QDAY 11/12/21 11/12/21 Unknown History Tiotropium [Spiriva] 2 mcg IH DAILY 11/13/21 11/13/21 Unknown History Active Meds: Active Medications Acetaminophen (Acetaminophen 325 Mg Tab) 650 mg PO Q6H PRN PRN Reason: Pain, Mild (1-3) Last Admin: 11/16/21 15:40 Dose: 650 mg Albuterol (Albuterol 2.5 Mg/3 Ml Nebu) 2.5 mg IH Q4HRT PRN PRN Reason: Shortness Of Breath Last Admin: 11/13/21 12:45 Dose: 2.5 mg Aripiprazole (Aripiprazole 10 Mg Tab) 10 mg PO QDAY [facility] Last Admin: 11/16/21 09:10 Dose: 10 mg Atorvastatin Calcium (Atorvastatin 20 Mg Tab) 20 mg PO QHS [facility] Last Admin: 11/16/21 21:59 Dose: 20 mg Bisacodyl (Bisacodyl 5 Mg Tab) 10 mg PO QDAY PRN PRN Reason: Constipation Last Admin: 11/16/21 16:30 Dose: 10 mg Furosemide (Furosemide 20 Mg Tab) 20 mg PO QDAY [facility] Last Admin: 11/16/21 09:10 Dose: 20 mg Lisinopril (Lisinopril 40 Mg Tab) 40 mg PO QDAY [facility] Last Admin: 11/16/21 09:11 Dose: 40 mg Magnesium Hydroxide (Magnesium Hydroxide (Mom) Oral Liqd Udc) 30 ml PO QDAY PRN PRN Reason: Constipation Melatonin (Melatonin 5 Mg Tab) 5 mg PO QHS PRN PRN Reason: Insomnia Last Admin: 11/17/21 03:45 Dose: 5 mg Meloxicam (Meloxicam 7.5 Mg Tab) 15 mg PO QDAY [facility] Last Admin: 11/16/21 09:10 Dose: 15 mg Pantoprazole Sodium (Pantoprazole 40 Mg Tab) 40 mg PO DAILY [facility] Last Admin: 11/16/21 09:11 Dose: 40 mg Sertraline HCl (Sertraline 100 Mg Tab) 100 mg PO QDAY [facility] Last Admin: 11/16/21 09:11 Dose: 100 mg Tiotropium [place] (Tiotropium 18 Mcg Cap Inhalation) 1 puff IH Q24HRT [facility] Last Admin: 11/16/21 09:13 Dose: 1 puff Results - Results Labs/Vitals: Last Vital Signs Temp 98.2 F 11/16/21 07:36 Pulse 76 11/15/21 19:36 Resp 18 11/16/21 07:36 BP 146/50 11/16/21 07:36 Pulse Ox 96 11/15/21 19:36
[2021-11-17] MEDS: SERTRALINE 100 MG TAB PO SCH (10:44)
[2021-11-17] MEDS: FUROSEMIDE 20 MG TAB PO SCH (10:44)
[2021-11-17] MEDS: ARIPiprazole 10 MG TAB PO SCH (10:44)
[2021-11-17] MEDS: TIOTROPIUM 18 MCG CAP INHALATION IH SCH (10:45)
[2021-11-17] MEDS: LISINOPRIL 40 MG TAB PO SCH (10:45)
[2021-11-17] MEDS: PANTOPRAZOLE 40 MG TAB PO SCH (10:46)
[2021-11-17] MEDS: MELOXICAM 7.5 MG TAB PO SCH (10:46)
--- NOTE | 2021-11-18 09:29 | Progress Note ---
Subjective Date of service: 11/18/21 Principal diagnosis: Bipolar Disorder Subjective Comment: 11/18/21: The patient was seen in her room; she continues to isolate. She states depression as 7/10. She denies any current suicidal/homicidal and denies hallucinations. 11/17/21: The patient was seen at breakfast. The patient is isolative. Continues to endorse depression rating as 6/10. She denies any current suicidal/homicidal and denies hallucinations. 11/16/21: The patient was seen resting in bed. She states she is not doing well today. Continues to endorse depression rating as 7/10. She denies any current suicidal/homicidal and denies hallucinations. 11/15/21: The patient was seen this morning. She states she is doing well. She reports sleep and appetite as good. She reports being depressed and rates as 7 /10. The patient complains of constipation stating she last had a bowel movement 4 days ago. She denies any current suicidal/homicidal and denies hallucinations. REVIEW OF SYSTEMS Constitutional: Negative for weight loss ENT: Negative for stridor Respiratory: Negative for cough or hemoptysis All other systems reviewed and are negative MENTAL STATUS EXAMINATION General Appearance and Behavior: Age appropriate, good hygiene, wearing appropriate clothes, calm, cooperative Cooperation: Participating/engaged Psychomotor Behavior: Tremors Mood: depressed Affect and affective range: congruent with mood Thought Process: Goal directed Thought Content: Reality oriented Speech: Normal volume, Regular rate and rhythm, Suicidal Ideation: Denies Homicidal Ideation: Denies Hallucinations: Denies Delusions: None elicited Impulse Control: impaired Insight and Judgment: poor insight and judgment, Memory: abnormal Attention: Normal Orientation: Alert, oriented Assessment and Plan (1) Bipolar Disorder Current Visit: Yes Status: Acute Treatment Plan Patient admitted for inpatient psychiatric evaluation, medication adjustment and close monitoring The patient's behavior, mood, sleep and appetite will be closely monitored. Patient enrolled in individual and group therapeutic sessions and encouraged to attend. Patient provided with a safe and structured environment. Patient's physical health needs will be addressed by the Hospitalist. Hospitalist Consulted Labs including CBC, CMP, Lipid profile and Hemoglobin A1C levels ordered for baseline reference Social Assessment will be completed and the Glaze Maker will work with patient and family to ensure a suitable and safe disposition Medication adjustment will be made as clinically indicated Continue Abilify 10mg po daily Start Depakote Dr 125mg po BID Usual Wellness Confucianist/Preservation: - Start Trazodone 50 mg po QHS & 50 mg po QHS PRN between 10 PM & 2 AM for insomnia - Start Melatonin 5 mg po QHS to promote circadian rhythm The patient agreed on the treatment plan, understood the risk, benefit, alternative treatment, potential consequence of no treatment, and gave informed consent. Estimated days: Post hospital care: primary care provider, psychiatric provider Case staffed with Dr. Villatoro Medications and Allergies Medications and Allergies Allergies Allergy/AdvReac Type Severity Reaction Status Date / Time No Known Allergies Allergy Verified 11/12/21 00:28 Home Medications Medication Instructions Recorded Confirmed Last Taken Type Albuterol Sulfate [Proair 2 puff IH Q4HR PRN 11/12/21 11/12/21 Unknown History Digihaler] AtorvaSTATin [Lipitor] 20 mg PO QHS 11/12/21 11/12/21 Unknown History Dexlansoprazole [Dexilant] 60 mg PO QDAY 11/12/21 11/12/21 Unknown History Furosemide [Lasix] 20 mg PO QDAY 11/12/21 11/12/21 Unknown History Meloxicam [Mobic] 15 mg PO DAILY 11/12/21 11/12/21 Unknown History Sertraline [Zoloft] 100 mg PO QDAY 11/12/21 11/12/21 Unknown History lisinopriL [Zestril TAB] 40 mg PO QDAY 11/12/21 11/12/21 Unknown History Tiotropium [Spiriva] 2 mcg IH DAILY 11/13/21 11/13/21 Unknown History Active Meds: Active Medications Acetaminophen (Acetaminophen 325 Mg Tab) 650 mg PO Q6H PRN PRN Reason: Pain, Mild (1-3) Last Admin: 11/16/21 15:40 Dose: 650 mg Albuterol (Albuterol 2.5 Mg/3 Ml Nebu) 2.5 mg IH Q4HRT PRN PRN Reason: Shortness Of Breath Last Admin: 11/13/21 12:45 Dose: 2.5 mg Aripiprazole (Aripiprazole 10 Mg Tab) 10 mg PO QDAY [facility] Last Admin: 11/17/21 10:44 Dose: 10 mg Atorvastatin Calcium (Atorvastatin 20 Mg Tab) 20 mg PO QHS [facility] Last Admin: 11/17/21 21:38 Dose: 20 mg Bisacodyl (Bisacodyl 5 Mg Tab) 10 mg PO QDAY PRN PRN Reason: Constipation Last Admin: 11/17/21 10:44 Dose: 10 mg Furosemide (Furosemide 20 Mg Tab) 20 mg PO QDAY [facility] Last Admin: 11/17/21 10:44 Dose: 20 mg Lisinopril (Lisinopril 40 Mg Tab) 40 mg PO QDAY [facility] Last Admin: 11/17/21 10:45 Dose: Not Given Magnesium Hydroxide (Magnesium Hydroxide (Mom) Oral Liqd Udc) 30 ml PO QDAY PRN PRN Reason: Constipation Melatonin (Melatonin 5 Mg Tab) 5 mg PO QHS PRN PRN Reason: Insomnia Last Admin: 11/17/21 21:38 Dose: 5 mg Meloxicam (Meloxicam 7.5 Mg Tab) 15 mg PO QDAY [facility] Last Admin: 11/17/21 10:46 Dose: 15 mg Pantoprazole Sodium (Pantoprazole 40 Mg Tab) 40 mg PO DAILY [facility] Last Admin: 11/17/21 10:46 Dose: 40 mg Sertraline HCl (Sertraline 100 Mg Tab) 100 mg PO QDAY [facility] Last Admin: 11/17/21 10:44 Dose: 100 mg Tiotropium [place] (Tiotropium 18 Mcg Cap Inhalation) 1 puff IH Q24HRT [facility] Last Admin: 11/17/21 10:45 Dose: Not Given Results - Results Labs/Vitals: Last Vital Signs Temp 98.6 F 11/17/21 20:18 Pulse 81 11/17/21 20:18 Resp 16 11/17/21 20:18 BP 101/60 11/17/21 20:18 Pulse Ox 97 11/17/21 20:18
[2021-11-18] MEDS: PANTOPRAZOLE 40 MG TAB PO SCH (09:31)
[2021-11-18] MEDS: ARIPiprazole 10 MG TAB PO SCH (09:31)
[2021-11-18] MEDS: FUROSEMIDE 20 MG TAB PO SCH (09:31)
[2021-11-18] MEDS: SERTRALINE 100 MG TAB PO SCH (09:31)
[2021-11-18] MEDS: LISINOPRIL 40 MG TAB PO SCH (09:32)
[2021-11-18] MEDS: MELOXICAM 7.5 MG TAB PO SCH (09:32)
[2021-11-18] MEDS: TIOTROPIUM 18 MCG CAP INHALATION IH SCH (09:49)
[2021-11-18] MEDS: DIVALPROEX DR 125 MG TAB PO SCH ×2 (10:00→21:25)
--- NOTE | 2021-11-18 20:11 | Progress Note ---
Assessment and Plan Assessment and plan: --Constipation; resolved Plenty of oral fluids, stool softeners as needed -- COPD (chronic obstructive pulmonary disease) Supportive care, pulmonary toilet, supplemental oxygen as clinically indicated. --HTN (hypertension) Monitor blood pressure nightly. Continue medical management. --QASIM (generalized anxiety disorder) Benzodiazepine therapy as clinically indicated. Management per psych -- MDD (major depressive disorder) Supportive care, continue medical management as per mental health team --Advance care planning Plan of care reviewed with patient and her nurse Will monitor closely and adjust management as needed Call us with questions History Interval history: I have have seen and examined the patient in activity room Patient's chart and medications reviewed No new events reported by the nursing staff Patient's constipation is resolved Feels better no new complaints Anxious to go home Vital signs noted Hospitalist Physical - Constitutional Vitals: Temp Pulse Resp BP Pulse Ox 97.4 F L 80 16 136/67 98 11/18/21 20:00 11/18/21 20:00 11/18/21 20:00 11/18/21 20:00 11/18/21 20:00 General appearance: Present: no acute distress, well-nourished, obese (Morbidly obese) - EENT Eyes: Present: PERRL, EOM intact - Neck Neck: Present: supple, normal ROM - Respiratory Respiratory effort: normal Respiratory: bilateral: diminished, negative: rales, rhonchi, wheezing - Cardiovascular Rhythm: regular Heart Sounds: Present: S1 & S2 - Extremities Extremities: no ischemia, No edema - Abdominal General gastrointestinal: soft, non-tender, non-distended, normal bowel sounds - Integumentary Integumentary: Present: clear, warm - Psychiatric Psychiatric: appropriate mood/affect, cooperative - Neurologic Neurologic: moves all extremities Results Dyer/IV: Voiding Method Toilet Active Medications - Current Medications Current Medications: Generic Name Dose Route Start Last Admin Trade Name Freq PRN Reason Stop Dose Admin Acetaminophen 650 mg 11/13/21 20:58 11/16/21 15:40 Acetaminophen 325 Mg Tab PO 650 mg Q6H PRN Administration Pain, Mild (1-3) Albuterol 2.5 mg 11/12/21 12:00 11/13/21 12:45 Albuterol 2.5 Mg/3 Ml Nebu IH 2.5 mg Q4HRT PRN Administration Shortness Of Breath Aripiprazole 10 mg 11/15/21 10:00 11/18/21 09:31 Aripiprazole 10 Mg Tab PO 10 mg QDAY ROSARIO Administration Atorvastatin Calcium 20 mg 11/12/21 22:00 11/17/21 21:38 Atorvastatin 20 Mg Tab PO 20 mg QHS ROSARIO Administration Bisacodyl 10 mg 11/15/21 10:00 11/17/21 10:44 Bisacodyl 5 Mg Tab PO 10 mg QDAY PRN Administration Constipation Divalproex Sodium 125 mg 11/18/21 11:00 11/18/21 10:[address] 125 Mg Tab PO 125 mg BID ROSARIO Administration Furosemide 20 mg 11/12/21 11:00 11/18/21 09:31 Furosemide 20 Mg Tab PO 20 mg QDAY ROSARIO Administration Lisinopril 40 mg 11/12/21 11:00 11/18/21 09:32 Lisinopril 40 Mg Tab PO Not Given QDAY ROSARIO Magnesium Hydroxide 30 ml 11/16/21 18:02 Magnesium Hydroxide (Mom) Oral Liqd Udc PO QDAY PRN Constipation Melatonin 5 mg 11/17/21 04:00 11/17/21 21:38 Melatonin 5 Mg Tab PO 5 mg QHS PRN Administration Insomnia Meloxicam 15 mg 11/12/21 11:00 11/18/21 09:32 Meloxicam 7.5 Mg Tab PO 15 mg QDAY ROSARIO Administration Pantoprazole Sodium 40 mg 11/12/21 11:00 11/18/21 09:31 Pantoprazole 40 Mg Tab PO 40 mg DAILY [facility]ARIO Administration Sertraline HCl 100 mg 11/12/21 11:00 11/18/21 09:31 Sertraline 100 Mg Tab PO 100 mg QDAY ROSARIO Administration Tiotropium [place] 1 puff 11/14/21 09:00 11/18/21 09:49 Tiotropium 18 Mcg Cap Inhalation IH 1 puff Q24HRT ROSARIO Administration
[2021-11-18] MEDS: MELATONIN 5 MG TAB PO PRN (21:28)
[2021-11-19] MEDS: TIOTROPIUM 18 MCG CAP INHALATION IH SCH (09:10)
[2021-11-19] MEDS: MELOXICAM 7.5 MG TAB PO SCH (09:10)
[2021-11-19] MEDS: DIVALPROEX DR 125 MG TAB PO SCH ×3 (09:11→20:37)
[2021-11-19] MEDS: LISINOPRIL 40 MG TAB PO SCH (09:11)
[2021-11-19] MEDS: ARIPiprazole 10 MG TAB PO SCH (09:11)
[2021-11-19] MEDS: FUROSEMIDE 20 MG TAB PO SCH (09:11)
[2021-11-19] MEDS: PANTOPRAZOLE 40 MG TAB PO SCH (09:11)
[2021-11-19] MEDS: SERTRALINE 100 MG TAB PO SCH (09:11)
--- NOTE | 2021-11-19 10:35 | Progress Note ---
Subjective Date of service: 11/19/21 Principal diagnosis: Bipolar Disorder Subjective Comment: The patient was seen today. She says she feels a little depressed. She denies SI/HI or hallucinations. The patient is asking to back to her room. She says "I'm worn out." 11/18/21: The patient was seen in her room; she continues to isolate. She states depression as 7/10. She denies any current suicidal/homicidal and denies hallucinations. 11/17/21: The patient was seen at breakfast. The patient is isolative. Continues to endorse depression rating as 6/10. She denies any current suicidal/homicidal and denies hallucinations. 11/16/21: The patient was seen resting in bed. She states she is not doing well today. Continues to endorse depression rating as 7/10. She denies any current suicidal/homicidal and denies hallucinations. 11/15/21: The patient was seen this morning. She states she is doing well. She reports sleep and appetite as good. She reports being depressed and rates as 7/1 0. The patient complains of constipation stating she last had a bowel movement 4 days ago. She denies any current suicidal/homicidal and denies hallucinations. REVIEW OF SYSTEMS Constitutional: Negative for weight loss ENT: Negative for stridor Respiratory: Negative for cough or hemoptysis All other systems reviewed and are negative MENTAL STATUS EXAMINATION General Appearance and Behavior: Age appropriate, good hygiene, wearing appropriate clothes, calm, cooperative Cooperation: Participating/engaged Psychomotor Behavior: Tremors Mood: depressed Affect and affective range: congruent with mood Thought Process: Goal directed Thought Content: Reality oriented Speech: Normal volume, Regular rate and rhythm, Suicidal Ideation: Denies Homicidal Ideation: Denies Hallucinations: Denies Delusions: None elicited Impulse Control: impaired Insight and Judgment: poor insight and judgment, Memory: abnormal Attention: Normal Orientation: Alert, oriented Assessment and Plan (1) Bipolar Disorder Current Visit: Yes Status: Acute Treatment Plan Patient admitted for inpatient psychiatric evaluation, medication adjustment and close monitoring The patient's behavior, mood, sleep and appetite will be closely monitored. Patient enrolled in individual and group therapeutic sessions and encouraged to attend. Patient provided with a safe and structured environment. Patient's physical health needs will be addressed by the Hospitalist. Hospitalist Consulted Labs including CBC, CMP, Lipid profile and Hemoglobin A1C levels ordered for baseline reference Social Assessment will be completed and the Marketing Administrator will work with patient and family to ensure a suitable and safe disposition Medication adjustment will be made as clinically indicated Increase Abilify 15mg po daily Increase Depakote Dr 125mg po TID Usual Wellness Yazidi/Preservation: - Start Trazodone 50 mg po QHS & 50 mg po QHS PRN between 10 PM & 2 AM for insomnia - Start Melatonin 5 mg po QHS to promote circadian rhythm The patient agreed on the treatment plan, understood the risk, benefit, alternative treatment, potential consequence of no treatment, and gave informed consent. Estimated days: Post hospital care: primary care provider, psychiatric provider Case staffed with Dr. Villatoro Medications and Allergies Allergies Allergy/AdvReac Type Severity Reaction Status Date / Time No Known Allergies Allergy Verified 11/12/21 00:28 Home Medications Medication Instructions Recorded Confirmed Last Taken Type Albuterol Sulfate [Proair 2 puff IH Q4HR PRN 11/12/21 11/12/21 Unknown History Digihaler] AtorvaSTATin [Lipitor] 20 mg PO QHS 11/12/21 11/12/21 Unknown History Dexlansoprazole [Dexilant] 60 mg PO QDAY 11/12/21 11/12/21 Unknown History Furosemide [Lasix] 20 mg PO QDAY 11/12/21 11/12/21 Unknown History Meloxicam [Mobic] 15 mg PO DAILY 11/12/21 11/12/21 Unknown History Sertraline [Zoloft] 100 mg PO QDAY 11/12/21 11/12/21 Unknown History lisinopriL [Zestril TAB] 40 mg PO QDAY 11/12/21 11/12/21 Unknown History Tiotropium [Spiriva] 2 mcg IH DAILY 11/13/21 11/13/21 Unknown History Active Meds: Active Medications Acetaminophen (Acetaminophen 325 Mg Tab) 650 mg PO Q6H PRN PRN Reason: Pain, Mild (1-3) Last Admin: 11/16/21 15:40 Dose: 650 mg Albuterol (Albuterol 2.5 Mg/3 Ml Nebu) 2.5 mg IH Q4HRT PRN PRN Reason: Shortness Of Breath Last Admin: 11/13/21 12:45 Dose: 2.5 mg Aripiprazole (Aripiprazole 10 Mg Tab) 10 mg PO QDAY [facility] Last Admin: 11/19/21 09:11 Dose: 10 mg Atorvastatin Calcium (Atorvastatin 20 Mg Tab) 20 mg PO QHS [facility] Last Admin: 11/18/21 21:25 Dose: 20 mg Bisacodyl (Bisacodyl 5 Mg Tab) 10 mg PO QDAY PRN PRN Reason: Constipation Last Admin: 11/17/21 10:44 Dose: 10 mg Divalproex Sodium (Divalproex Dr 125 Mg Tab) 125 mg PO BID [facility] Last Admin: 11/19/21 09:11 Dose: 125 mg Furosemide (Furosemide 20 Mg Tab) 20 mg PO QDAY [facility] Last Admin: 11/19/21 09:11 Dose: 20 mg Lisinopril (Lisinopril 40 Mg Tab) 40 mg PO QDAY [facility] Last Admin: 11/19/21 09:11 Dose: Not Given Magnesium Hydroxide (Magnesium Hydroxide (Mom) Oral Liqd Udc) 30 ml PO QDAY PRN PRN Reason: Constipation Melatonin (Melatonin 5 Mg Tab) 5 mg PO QHS PRN PRN Reason: Insomnia Last Admin: 11/18/21 21:28 Dose: 5 mg Meloxicam (Meloxicam 7.5 Mg Tab) 15 mg PO QDAY [facility] Last Admin: 11/19/21 09:10 Dose: 15 mg Pantoprazole Sodium (Pantoprazole 40 Mg Tab) 40 mg PO DAILY [facility] Last Admin: 11/19/21 09:11 Dose: 40 mg Sertraline HCl (Sertraline 100 Mg Tab) 100 mg PO QDAY [facility] Last Admin: 11/19/21 09:11 Dose: 100 mg Tiotropium [place] (Tiotropium 18 Mcg Cap Inhalation) 1 puff IH Q24HRT [facility] Last Admin: 11/19/21 09:10 Dose: 1 puff Results - Results Labs/Vitals: Last Vital Signs Temp 97.7 F 11/19/21 08:52 Pulse 68 11/19/21 09:11 Resp 20 11/19/21 08:52 BP 109/53 11/19/21 09:11 Pulse Ox 98 11/19/21 08:52
--- NOTE | 2021-11-19 19:11 | Progress Note ---
Assessment and Plan Assessment and plan: -- COPD (chronic obstructive pulmonary disease) Supportive care, pulmonary toilet, supplemental oxygen as clinically indicated. --HTN (hypertension) Monitor blood pressure nightly. Continue medical management. --Constipation; resolved Plenty of oral fluids, stool softeners as needed --QASIM (generalized anxiety disorder) Benzodiazepine therapy as clinically indicated. Management per psych -- MDD (major depressive disorder) Supportive care, continue medical management as per mental health team --Advance care planning Plan of care reviewed with patient and her nurse Will monitor closely and adjust management as needed Patient is medically stable With questions History Interval history: I have seen and examined the patient at the bedside Patient's chart and medications reviewed Patient is sleeping easily awakens No new complaints Vital signs noted Hospitalist Physical - Constitutional Vitals: Temp Pulse Resp BP Pulse Ox 97.7 F 68 20 109/53 98 11/19/21 08:52 11/19/21 09:11 11/19/21 08:52 11/19/21 09:11 11/19/21 08:52 General appearance: Present: no acute distress, well-nourished, obese (Morbidly obese) - EENT Eyes: Present: PERRL, EOM intact - Neck Neck: Present: supple, normal ROM - Respiratory Respiratory effort: normal Respiratory: bilateral: diminished, negative: rales, rhonchi, wheezing - Cardiovascular Rhythm: regular Heart Sounds: Present: S1 & S2 - Extremities Extremities: no ischemia, No edema - Abdominal General gastrointestinal: soft, non-tender, non-distended, normal bowel sounds - Integumentary Integumentary: Present: clear, warm - Psychiatric Psychiatric: appropriate mood/affect, cooperative - Neurologic Neurologic: moves all extremities Results Dyer/IV: Voiding Method Toilet Active Medications - Current Medications Current Medications: Generic Name Dose Route Start Last Admin Trade Name Freq PRN Reason Stop Dose Admin Acetaminophen 650 mg 11/13/21 20:58 11/16/21 15:40 Acetaminophen 325 Mg Tab PO 650 mg Q6H PRN Administration Pain, Mild (1-3) Albuterol 2.5 mg 11/12/21 12:00 11/13/21 12:45 Albuterol 2.5 Mg/3 Ml Nebu IH 2.5 mg Q4HRT PRN Administration Shortness Of Breath Aripiprazole 15 mg 11/20/21 10:00 Aripiprazole 15 Mg Tab PO QDAY ROSARIO Atorvastatin Calcium 20 mg 11/12/21 22:00 11/18/21 21:25 Atorvastatin 20 Mg Tab PO 20 mg QHS ROSARIO Administration Bisacodyl 10 mg 11/15/21 10:00 11/17/21 10:44 Bisacodyl 5 Mg Tab PO 10 mg QDAY PRN Administration Constipation Divalproex Sodium 125 mg 11/19/21 14:00 11/19/21 13:[address] 125 Mg Tab PO 125 mg TID ROSARIO Administration Furosemide 20 mg 11/12/21 11:00 11/19/21 09:11 Furosemide 20 Mg Tab PO 20 mg QDAY ROSARIO Administration Lisinopril 40 mg 11/12/21 11:00 11/19/21 09:11 Lisinopril 40 Mg Tab PO Not Given QDAY ROSARIO Magnesium Hydroxide 30 ml 11/16/21 18:02 Magnesium Hydroxide (Mom) Oral Liqd Udc PO QDAY PRN Constipation Melatonin 5 mg 11/17/21 04:00 11/18/21 21:28 Melatonin 5 Mg Tab PO 5 mg QHS PRN Administration Insomnia Meloxicam 15 mg 11/12/21 11:00 11/19/21 09:10 Meloxicam 7.5 Mg Tab PO 15 mg QDAY ROSARIO Administration Pantoprazole Sodium 40 mg 11/12/21 11:00 11/19/21 09:11 Pantoprazole 40 Mg Tab PO 40 mg DAILY ROSARIO Administration Sertraline HCl 100 mg 11/12/21 11:00 11/19/21 09:11 Sertraline 100 Mg Tab PO 100 mg QDAY ROSARIO Administration Tiotropium [place] 1 puff 11/14/21 09:00 11/19/21 09:10 Tiotropium 18 Mcg Cap Inhalation IH 1 puff Q24HRT ROSARIO Administration Nutrition/Malnutrition Assess - Dietary Evaluation Nutrition/Malnutrition Findings: Nutrition Notes Start: 11/19/21 12:33 Freq: Status: Active Protocol: Document 11/19/21 12:33 ALLISON (Rec: 11/19/21 12:36 ALLISON [email or web address]) Nutrition Notes Need for Assessment generated from: LOS Initial or Follow up Brief Note Current Diet Regular Height 5 ft 3 in Weight 128.8 kg [place] Body Weight (kg) 52.27 BMI 50.3 Weight Status Morbidly Obese Subjective/Other Information Pt screened for LOS. She has consumed 88% of meals since admission. Percent of energy/protein needs met: 100% energy and pro Burn Absent Trauma Absent Minimum of two criteria No Is patient on ventilator? No Is Patient Ambulatory and/or Out of Bed Yes REE-([place]-St. Jeor-ambulatory/OOB) [ 2401.269 [id number]] Kcal/Kg value to use for calculation 14 Approximate Energy Requirements Using 1803 kcal/Kg Calculation Used for Recommendations Kcal/kg Additional Notes Pro needs 0.8-1g/kg adjBW: 72- 91g/day Fluid needs 1ml/kcal Nutrition Intervention Revisit per MD consult or patient Sign Off request:
[2021-11-19] MEDS: MELATONIN 5 MG TAB PO PRN (21:24)
--- NOTE | 2021-11-20 08:55 | Progress Note ---
Subjective Date of service: 11/20/21 Principal diagnosis: Bipolar Disorder Subjective Comment: The patient was seen today. She is asking about going home. I spoke to the patient and encouraged her to not withdraw to her room, and be more participating during group. She says she has bee participating. The patient denies SI/HI. She states she hears stuff in her room at night. She says "but it's okay. Don't worry about it. I think maybe it's just people talking in the [place]."' 11/19 The patient was seen today. She says she feels a little depressed. She denies SI/HI or hallucinations. The patient is asking to back to her room. She says "I'm worn out." 11/18/21: The patient was seen in her room; she continues to isolate. She states depression as 7/10. She denies any current suicidal/homicidal and denies hallucinations. 11/17/21: The patient was seen at breakfast. The patient is isolative. Continues to endorse depression rating as 6/10. She denies any current suicidal/homicidal and denies hallucinations. 11/16/21: The patient was seen resting in bed. She states she is not doing well today. Continues to endorse depression rating as 7/10. She denies any current suicidal/homicidal and denies hallucinations. 11/15/21: The patient was seen this morning. She states she is doing well. She reports sleep and appetite as good. She reports being depressed and rates as 7/10. The patient complains of constipation stating she last had a bowel movement 4 days ago. She denies any current suicidal/homicidal and denies hallucinations. REVIEW OF SYSTEMS Constitutional: Negative for weight loss ENT: Negative for stridor Respiratory: Negative for cough or hemoptysis All other systems reviewed and are negative MENTAL STATUS EXAMINATION General Appearance and Behavior: Age appropriate, good hygiene, wearing appropriate clothes, calm, cooperative Cooperation: Participating/engaged Psychomotor Behavior: Tremors Mood: depressed Affect and affective range: congruent with mood Thought Process: Goal directed Thought Content: Reality oriented Speech: Normal volume, Regular rate and rhythm, Suicidal Ideation: Denies Homicidal Ideation: Denies Hallucinations: Denies Delusions: None elicited Impulse Control: impaired Insight and Judgment: poor insight and judgment, Memory: abnormal Attention: Normal Orientation: Alert, oriented Assessment and Plan (1) Bipolar Disorder Current Visit: Yes Status: Acute Treatment Plan Patient admitted for inpatient psychiatric evaluation, medication adjustment and close monitoring The patient's behavior, mood, sleep and appetite will be closely monitored. Patient enrolled in individual and group therapeutic sessions and encouraged to attend. Patient provided with a safe and structured environment. Patient's physical health needs will be addressed by the Hospitalist. Hospitalist Consulted Labs including CBC, CMP, Lipid profile and Hemoglobin A1C levels ordered for baseline reference Social Assessment will be completed and the Pinion Polisher will work with patient and family to ensure a suitable and safe disposition Medication adjustment will be made as clinically indicated Increase Abilify 15mg po daily yesterday Increase Depakote Dr 125mg po TID yesterday No changes made today Usual Wellness Caodaism/Preservation: - Start Trazodone 50 mg po QHS & 50 mg po QHS PRN between 10 PM & 2 AM for in somnia - Start Melatonin 5 mg po QHS to promote circadian rhythm The patient agreed on the treatment plan, understood the risk, benefit, alternative treatment, potential consequence of no treatment, and gave informed consent. Estimated days: Post hospital care: primary care provider, psychiatric provider Case staffed with Dr. Villatoro Medications and Allergies Allergies Allergy/AdvReac Type Severity Reaction Status Date / Time No Known Allergies Allergy Verified 11/12/21 00:28 Home Medications Medication Instructions Recorded Confirmed Last Taken Type Albuterol Sulfate [Proair 2 puff IH Q4HR PRN 11/12/21 11/12/21 Unknown History Digihaler] AtorvaSTATin [Lipitor] 20 mg PO QHS 11/12/21 11/12/21 Unknown History Dexlansoprazole [Dexilant] 60 mg PO QDAY 11/12/21 11/12/21 Unknown History Furosemide [Lasix] 20 mg PO QDAY 11/12/21 11/12/21 Unknown History Meloxicam [Mobic] 15 mg PO DAILY 11/12/21 11/12/21 Unknown History Sertraline [Zoloft] 100 mg PO QDAY 11/12/21 11/12/21 Unknown History lisinopriL [Zestril TAB] 40 mg PO QDAY 11/12/21 11/12/21 Unknown History Tiotropium [Spiriva] 2 mcg IH DAILY 11/13/21 11/13/21 Unknown History Active Meds: Active Medications Acetaminophen (Acetaminophen 325 Mg Tab) 650 mg PO Q6H PRN PRN Reason: Pain, Mild (1-3) Last Admin: 11/16/21 15:40 Dose: 650 mg Albuterol (Albuterol 2.5 Mg/3 Ml Nebu) 2.5 mg IH Q4HRT PRN PRN Reason: Shortness Of Breath Last Admin: 11/13/21 12:45 Dose: 2.5 mg Aripiprazole (Aripiprazole 15 Mg Tab) 15 mg PO QDAY [facility] Atorvastatin Calcium (Atorvastatin 20 Mg Tab) 20 mg PO QHS [facility] Last Admin: 11/19/21 21:24 Dose: 20 mg Bisacodyl (Bisacodyl 5 Mg Tab) 10 mg PO QDAY PRN PRN Reason: Constipation Last Admin: 11/17/21 10:44 Dose: 10 mg Divalproex Sodium (Divalproex Dr 125 Mg Tab) 125 mg PO TID [facility] Last Admin: 11/19/21 20:37 Dose: 125 mg Furosemide (Furosemide 20 Mg Tab) 20 mg PO QDAY [facility] Last Admin: 11/19/21 09:11 Dose: 20 mg Lisinopril (Lisinopril 40 Mg Tab) 40 mg PO QDAY [facility] Last Admin: 11/19/21 09:11 Dose: Not Given Magnesium Hydroxide (Magnesium Hydroxide (Mom) Oral Liqd Udc) 30 ml PO QDAY PRN PRN Reason: Constipation Melatonin (Melatonin 5 Mg Tab) 5 mg PO QHS PRN PRN Reason: Insomnia Last Admin: 11/19/21 21:24 Dose: 5 mg Meloxicam (Meloxicam 7.5 Mg Tab) 15 mg PO QDAY [facility] Last Admin: 11/19/21 09:10 Dose: 15 mg Pantoprazole Sodium (Pantoprazole 40 Mg Tab) 40 mg PO DAILY [facility] Last Admin: 11/19/21 09:11 Dose: 40 mg Sertraline HCl (Sertraline 100 Mg Tab) 100 mg PO QDAY [facility] Last Admin: 11/19/21 09:11 Dose: 100 mg Tiotropium [place] (Tiotropium 18 Mcg Cap Inhalation) 1 puff IH Q24HRT [facility] Last Admin: 11/19/21 09:10 Dose: 1 puff Results - Results Labs/Vitals: Last Vital Signs Temp 99.1 F 11/19/21 19:11 Pulse 69 11/19/21 19:11 Resp 18 11/19/21 19:11 BP 141/43 11/19/21 19:11 Pulse Ox 92 11/19/21 19:11
[2021-11-20] MEDS: DIVALPROEX DR 125 MG TAB PO SCH ×3 (09:24→22:02)
[2021-11-20] MEDS: TIOTROPIUM 18 MCG CAP INHALATION IH SCH (09:25)
[2021-11-20] MEDS: MELOXICAM 7.5 MG TAB PO SCH (09:26)
[2021-11-20] MEDS: ARIPiprazole 15 MG TAB PO SCH (09:26)
[2021-11-20] MEDS: FUROSEMIDE 20 MG TAB PO SCH (09:26)
[2021-11-20] MEDS: PANTOPRAZOLE 40 MG TAB PO SCH (09:27)
[2021-11-20] MEDS: SERTRALINE 100 MG TAB PO SCH (09:29)
[2021-11-20] MEDS: LISINOPRIL 40 MG TAB PO SCH (09:35)
--- NOTE | 2021-11-20 19:51 | Progress Note ---
Assessment and Plan Assessment and plan: -- COPD (chronic obstructive pulmonary disease) Supportive care, pulmonary toilet, supplemental oxygen as clinically indicated. --HTN (hypertension) Monitor blood pressure nightly. Continue medical management. --Constipation; resolved Plenty of oral fluids, stool softeners as needed --QASIM (generalized anxiety disorder) Benzodiazepine therapy as clinically indicated. Management per psych -- MDD (major depressive disorder) Supportive care, continue medical management as per mental health team --Advance care planning Plan of care reviewed with patient and her nurse Will monitor closely and adjust management as needed Patient is medically stable Plan of care discussed in detail with the patient and her nurse Call us with questions History Interval history: I seen and examined the patient activity stable Patient is very pleasant, responding appropriately No new complaints Vital signs noted Hospitalist Physical - Constitutional Vitals: Temp Pulse Resp BP Pulse Ox 98.7 F 66 20 131/53 98 11/20/21 09:35 11/20/21 09:35 11/20/21 09:35 11/20/21 09:35 11/20/21 09:35 General appearance: Present: no acute distress, well-nourished, obese (Morbidly obese) - EENT Eyes: Present: PERRL, EOM intact - Neck Neck: Present: supple, normal ROM - Respiratory Respiratory effort: normal Respiratory: bilateral: diminished, negative: rales, rhonchi, wheezing - Cardiovascular Rhythm: regular Heart Sounds: Present: S1 & S2 - Extremities Extremities: no ischemia, No edema - Abdominal General gastrointestinal: soft, non-tender, non-distended, normal bowel sounds - Integumentary Integumentary: Present: clear, warm - Psychiatric Psychiatric: appropriate mood/affect, cooperative - Neurologic Neurologic: CNII-XII intact, moves all extremities Results Dyer/IV: Voiding Method Toilet Active Medications - Current Medications Current Medications: Generic Name Dose Route Start Last Admin Trade Name Freq PRN Reason Stop Dose Admin Acetaminophen 650 mg 11/13/21 20:58 11/16/21 15:40 Acetaminophen 325 Mg Tab PO 650 mg Q6H PRN Administration Pain, Mild (1-3) Albuterol 2.5 mg 11/12/21 12:00 11/13/21 12:45 Albuterol 2.5 Mg/3 Ml Nebu IH 2.5 mg Q4HRT PRN Administration Shortness Of Breath Aripiprazole 15 mg 11/20/21 10:00 11/20/21 09:26 Aripiprazole 15 Mg Tab PO 15 mg QDAY [facility] Administration Atorvastatin Calcium 20 mg 11/12/21 22:00 11/19/21 21:24 Atorvastatin 20 Mg Tab PO 20 mg QHS [facility] Administration Bisacodyl 10 mg 11/15/21 10:00 11/17/21 10:44 Bisacodyl 5 Mg Tab PO 10 mg QDAY PRN Administration Constipation Divalproex Sodium 125 mg 11/19/21 14:00 11/20/21 13:[address] 125 Mg Tab PO 125 mg TID [facility] Administration Furosemide 20 mg 11/12/21 11:00 11/20/21 09:26 Furosemide 20 Mg Tab PO 20 mg QDAY [facility] Administration Lisinopril 40 mg 11/12/21 11:00 11/20/21 09:35 Lisinopril 40 Mg Tab PO Not Given QDAY [facility] Magnesium Hydroxide 30 ml 11/16/21 18:02 Magnesium Hydroxide (Mom) Oral Liqd Udc PO QDAY PRN Constipation Melatonin 5 mg 11/17/21 04:00 11/19/21 21:24 Melatonin 5 Mg Tab PO 5 mg QHS PRN Administration Insomnia Meloxicam 15 mg 11/12/21 11:00 11/20/21 09:26 Meloxicam 7.5 Mg Tab PO 15 mg QDAY [facility] Administration Pantoprazole Sodium 40 mg 11/12/21 11:00 11/20/21 09:27 Pantoprazole 40 Mg Tab PO 40 mg DAILY [facility] Administration Sertraline HCl 100 mg 11/12/21 11:00 11/20/21 09:29 Sertraline 100 Mg Tab PO 100 mg QDAY [facility] Administration Tiotropium [place] 1 puff 11/14/21 09:00 11/20/21 09:25 Tiotropium 18 Mcg Cap Inhalation IH 1 puff Q24HRT [facility] Administration Nutrition/Malnutrition Assess - Dietary Evaluation Nutrition/Malnutrition Findings: Nutrition Notes Start: 11/19/21 12:33 Freq: Status: Active Protocol: Document 11/19/21 12:33 NHALL (Rec: 11/19/21 12:36 NHALL [id number]) Nutrition Notes Need for Assessment generated from: LOS Initial or Follow up Brief Note Current Diet Regular Height 5 ft 3 in Weight 128.8 kg [place] Body Weight (kg) 52.27 BMI 50.3 Weight Status Morbidly Obese Subjective/Other Information Pt screened for LOS. She has consumed 88% of meals since admission. Percent of energy/protein needs met: 100% energy and pro Burn Absent Trauma Absent Minimum of two criteria No Is patient on ventilator? No Is Patient Ambulatory and/or Out of Bed Yes REE-([place] or-ambulatory/OOB) [ 2401.269 NUTR.MSJOOB] Kcal/Kg value to use for calculation 14 Approximate Energy Requirements Using 1803 kcal/Kg Calculation Used for Recommendations Kcal/kg Additional Notes Pro needs 0.8-1g/kg adjBW: 72- 91g/day Fluid needs 1ml/kcal Nutrition Intervention Revisit per MD consult or patient Sign Off request:
[2021-11-21] MEDS: TIOTROPIUM 18 MCG CAP INHALATION IH SCH (09:35)
[2021-11-21] MEDS: PANTOPRAZOLE 40 MG TAB PO SCH (09:35)
[2021-11-21] MEDS: LISINOPRIL 40 MG TAB PO SCH (09:36)
[2021-11-21] MEDS: DIVALPROEX DR 125 MG TAB PO SCH ×3 (09:36→21:36)
[2021-11-21] MEDS: FUROSEMIDE 20 MG TAB PO SCH (09:37)
[2021-11-21] MEDS: ARIPiprazole 15 MG TAB PO SCH (09:37)
[2021-11-21] MEDS: SERTRALINE 100 MG TAB PO SCH (09:37)
[2021-11-21] MEDS: MELOXICAM 7.5 MG TAB PO SCH (09:37)
--- NOTE | 2021-11-21 10:13 | Progress Note ---
Subjective Date of service: 11/21/21 Principal diagnosis: Bipolar Disorder Subjective Comment: The patient was seen today. She is lying in bed. She says she still feels "a little depressed but much better." She denies SI/HI or hallucinations of any kine. 11/20 The patient was seen today. She is asking about going home. I spoke to the patient and encouraged her to not withdraw to her room, and be more participating during group. She says she has bee participating. The patient denies SI/HI. She states she hears stuff in her room at night. She says "but it's okay. Don't worry about it. I think maybe it's just people talking in the [place]."' 11/19 The patient was seen today. She says she feels a little depressed. She denies SI/HI or hallucinations. The patient is asking to back to her room. She says "I'm worn out." 11/18/21: The patient was seen in her room; she continues to isolate. She states depression as 7/10. She denies any current suicidal/homicidal and denies hallucinations. 11/17/21: The patient was seen at breakfast. The patient is isolative. Continues to endorse depression rating as 6/10. She denies any current suicidal/homicidal and denies hallucinations. 11/16/21: The patient was seen resting in bed. She states she is not doing well today. Continues to endorse depression rating as 7/10. She denies any current suicidal/homicidal and denies hallucinations. 11/15/21: The patient was seen this morning. She states she is doing well. She reports sleep and appetite as good. She reports being depressed and rates as 7/10. The patient complains of constipation stating she last had a bowel movement 4 days ago. She denies any current suicidal/homicidal and denies hallucinations. REVIEW OF SYSTEMS Constitutional: Negative for weight loss ENT: Negative for stridor Respiratory: Negative for cough or hemoptysis All other systems reviewed and are negative MENTAL STATUS EXAMINATION General Appearance and Behavior: Age appropriate, good hygiene, wearing appropriate clothes, calm, cooperative Cooperation: Participating/engaged Psychomotor Behavior: Tremors Mood: depressed Affect and affective range: congruent with mood Thought Process: Goal directed Thought Content: Reality oriented Speech: Normal volume, Regular rate and rhythm, Suicidal Ideation: Denies Homicidal Ideation: Denies Hallucinations: Denies Delusions: None elicited Impulse Control: impaired Insight and Judgment: poor insight and judgment, Memory: abnormal Attention: Normal Orientation: Alert, oriented Assessment and Plan (1) Bipolar Disorder Current Visit: Yes Status: Acute Treatment Plan Patient admitted for inpatient psychiatric evaluation, medication adjustment and close monitoring The patient's behavior, mood, sleep and appetite will be closely monitored. Patient enrolled in individual and group therapeutic sessions and encouraged to attend. Patient provided with a safe and structured environment. Patient's physical health needs will be addressed by the Hospitalist. Hospitalist Consulted Labs including CBC, CMP, Lipid profile and Hemoglobin A1C levels ordered for baseline reference Social Assessment will be completed and the Programmer [employer]st [facility] will work with patient and family to ensure a suitable and safe disposition Medication adjustment will be made as clinically indicated Abilify 15mg po daily yesterday Depakote Dr 125mg po TID Usual Wellness Voodoo/Preservation: - Start Trazodone 50 mg po QHS & 50 mg po QHS PRN between 10 PM & 2 AM for insomnia - Start Melatonin 5 mg po QHS to promote circadian rhythm The patient agreed on the treatment plan, understood the risk, benefit, alternative treatment, potential consequence of no treatment, and gave informed consent. Estimated days: Post hospital care: primary care provider, psychiatric provider Case staffed with Dr. Villatoro Medications and Allergies Allergies Allergy/AdvReac Type Severity Reaction Status Date / Time No Known Allergies Allergy Verified 11/12/21 00:28 Home Medications Medication Instructions Recorded Confirmed Last Taken Type Albuterol Sulfate [Proair 2 puff IH Q4HR PRN 11/12/21 11/12/21 Unknown History Digihaler] AtorvaSTATin [Lipitor] 20 mg PO QHS 11/12/21 11/12/21 Unknown History Dexlansoprazole [Dexilant] 60 mg PO QDAY 11/12/21 11/12/21 Unknown History Furosemide [Lasix] 20 mg PO QDAY 11/12/21 11/12/21 Unknown History Meloxicam [Mobic] 15 mg PO DAILY 11/12/21 11/12/21 Unknown History Sertraline [Zoloft] 100 mg PO QDAY 11/12/21 11/12/21 Unknown History lisinopriL [Zestril TAB] 40 mg PO QDAY 11/12/21 11/12/21 Unknown History Tiotropium [Spiriva] 2 mcg IH DAILY 11/13/21 11/13/21 Unknown History Active Meds: Active Medications Acetaminophen (Acetaminophen 325 Mg Tab) 650 mg PO Q6H PRN PRN Reason: Pain, Mild (1-3) Last Admin: 11/16/21 15:40 Dose: 650 mg Albuterol (Albuterol 2.5 Mg/3 Ml Nebu) 2.5 mg IH Q4HRT PRN PRN Reason: Shortness Of Breath Last Admin: 11/13/21 12:45 Dose: 2.5 mg Aripiprazole (Aripiprazole 15 Mg Tab) 15 mg PO QDAY [facility] Last Admin: 11/21/21 09:37 Dose: 15 mg Atorvastatin Calcium (Atorvastatin 20 Mg Tab) 20 mg PO QHS [facility] Last Admin: 11/20/21 22:02 Dose: 20 mg Bisacodyl (Bisacodyl 5 Mg Tab) 10 mg PO QDAY PRN PRN Reason: Constipation Last Admin: 11/17/21 10:44 Dose: 10 mg Divalproex Sodium (Divalproex Dr 125 Mg Tab) 125 mg PO TID [facility] Last Admin: 11/21/21 09:36 Dose: 125 mg Furosemide (Furosemide 20 Mg Tab) 20 mg PO QDAY [facility] Last Admin: 11/21/21 09:37 Dose: 20 mg Lisinopril (Lisinopril 40 Mg Tab) 40 mg PO QDAY [facility] Last Admin: 11/21/21 09:36 Dose: 40 mg Magnesium Hydroxide (Magnesium Hydroxide (Mom) Oral Liqd Udc) 30 ml PO QDAY PRN PRN Reason: Constipation Melatonin (Melatonin 5 Mg Tab) 5 mg PO QHS PRN PRN Reason: Insomnia Last Admin: 11/19/21 21:24 Dose: 5 mg Meloxicam (Meloxicam 7.5 Mg Tab) 15 mg PO QDAY [facility] Last Admin: 11/21/21 09:37 Dose: 15 mg Pantoprazole Sodium (Pantoprazole 40 Mg Tab) 40 mg PO DAILY [facility] Last Admin: 11/21/21 09:35 Dose: 40 mg Sertraline HCl (Sertraline 100 Mg Tab) 100 mg PO QDAY [facility] Last Admin: 11/21/21 09:37 Dose: 100 mg Tiotropium [place] (Tiotropium 18 Mcg Cap Inhalation) 1 puff IH Q24HRT [facility] Last Admin: 11/20/21 09:25 Dose: 1 puff Results - Results Labs/Vitals: Last Vital Signs Temp 98.6 F 11/20/21 19:26 Pulse 68 11/21/21 09:36 Resp 17 11/20/21 19:26 BP 129/40 11/21/21 09:36 Pulse Ox 96 11/20/21 19:26
--- NOTE | 2021-11-21 19:37 | Progress Note ---
Assessment and Plan Assessment and plan: --QASIM (generalized anxiety disorder) Benzodiazepine therapy as clinically indicated. Management per psych -- MDD (major depressive disorder) Supportive care, continue medical management as per mental health team -- COPD (chronic obstructive pulmonary disease) Supportive care, pulmonary toilet, supplemental oxygen as clinically indicated. --HTN (hypertension) Monitor blood pressure nightly. Continue medical management. --Constipation; resolved Plenty of oral fluids, stool softeners as needed --Advance care planning Plan of care reviewed with patient and her nurse Will monitor closely and adjust management as needed Patient is medically stable Plan of care discussed in detail with the patient and her nurse Call us with questions History Interval history: I have seen and examined the patient at the bedside Patient's chart and medications reviewed Patient feels better anxious to go home No new complaints No new overnight events reported by the nursing Hospitalist Physical - Constitutional Vitals: Temp Pulse Resp BP Pulse Ox 98.6 F 68 17 129/40 96 11/20/21 19:26 11/21/21 09:36 11/20/21 19:26 11/21/21 09:36 11/20/21 19:26 General appearance: Present: no acute distress, well-nourished, obese (Morbidly obese) - EENT Eyes: Present: PERRL, EOM intact - Neck Neck: Present: supple, normal ROM - Respiratory Respiratory effort: normal Respiratory: bilateral: diminished, negative: rales, rhonchi, wheezing - Cardiovascular Rhythm: regular Heart Sounds: Present: S1 & S2 - Extremities Extremities: no ischemia, No edema - Abdominal General gastrointestinal: soft, non-tender, non-distended, normal bowel sounds - Integumentary Integumentary: Present: clear, warm - Psychiatric Psychiatric: appropriate mood/affect, cooperative - Neurologic Neurologic: moves all extremities Results Dyer/IV: Voiding Method Toilet Active Medications - Current Medications Current Medications: Generic Name Dose Route Start Last Admin Trade Name Freq PRN Reason Stop Dose Admin Acetaminophen 650 mg 11/13/21 20:58 11/16/21 15:40 Acetaminophen 325 Mg Tab PO 650 mg Q6H PRN Administration Pain, Mild (1-3) Albuterol 2.5 mg 11/12/21 12:00 11/13/21 12:45 Albuterol 2.5 Mg/3 Ml Nebu IH 2.5 mg Q4HRT PRN Administration Shortness Of Breath Aripiprazole 15 mg 11/20/21 10:00 11/21/21 09:37 Aripiprazole 15 Mg Tab PO 15 mg QDAY [facility] Administration Atorvastatin Calcium 20 mg 11/12/21 22:00 11/20/21 22:02 Atorvastatin 20 Mg Tab PO 20 mg QHS [facility] Administration Bisacodyl 10 mg 11/15/21 10:00 11/17/21 10:44 Bisacodyl 5 Mg Tab PO 10 mg QDAY PRN Administration Constipation Divalproex Sodium 125 mg 11/19/21 14:00 11/21/21 14:[address] 125 Mg Tab PO 125 mg TID [facility] Administration Furosemide 20 mg 11/12/21 11:00 11/21/21 09:37 Furosemide 20 Mg Tab PO 20 mg QDAY [facility] Administration Lisinopril 40 mg 11/12/21 11:00 11/21/21 09:36 Lisinopril 40 Mg Tab PO 40 mg QDAY [facility] Administration Magnesium Hydroxide 30 ml 11/16/21 18:02 Magnesium Hydroxide (Mom) Oral Liqd Udc PO QDAY PRN Constipation Melatonin 5 mg 11/17/21 04:00 11/19/21 21:24 Melatonin 5 Mg Tab PO 5 mg QHS PRN Administration Insomnia Meloxicam 15 mg 11/12/21 11:00 11/21/21 09:37 Meloxicam 7.5 Mg Tab PO 15 mg QDAY [facility] Administration Pantoprazole Sodium 40 mg 11/12/21 11:00 11/21/21 09:35 Pantoprazole 40 Mg Tab PO 40 mg DAILY [facility] Administration Sertraline HCl 100 mg 11/12/21 11:00 11/21/21 09:37 Sertraline 100 Mg Tab PO 100 mg QDAY [facility] Administration Tiotropium [place] 1 puff 11/14/21 09:00 11/21/21 09:35 Tiotropium 18 Mcg Cap Inhalation IH Not Given Q24HRT [facility] Nutrition/Malnutrition Assess - Dietary Evaluation Nutrition/Malnutrition Findings: Nutrition Notes Start: 11/19/21 12:33 Freq: Status: Active Protocol: Document 11/19/21 12:33 NHALL (Rec: 11/19/21 12:36 NHALL [id number]) Nutrition Notes Need for Assessment generated from: LOS Initial or Follow up Brief Note Current Diet Regular Height 5 ft 3 in Weight 128.8 kg [place] Body Weight (kg) 52.27 BMI 50.3 Weight Status Morbidly Obese Subjective/Other Information Pt screened for LOS. She has consumed 88% of meals since admission. Percent of energy/protein needs met: 100% energy and pro Burn Absent Trauma Absent Minimum of two criteria No Is patient on ventilator? No Is Patient Ambulatory and/or Out of Bed Yes REE-([place]-[facility]. or-ambulatory/OOB) [ 2401.269 NUTR.MSJOOB] Kcal/Kg value to use for calculation 14 Approximate Energy Requirements Using 1803 kcal/Kg Calculation Used for Recommendations Kcal/kg Additional Notes Pro needs 0.8-1g/kg adjBW: 72- 91g/day Fluid needs 1ml/kcal Nutrition Intervention Revisit per MD consult or patient Sign Off request:
[2021-11-21] MEDS: MELATONIN 5 MG TAB PO PRN (21:39)
[2021-11-22] MEDS: PANTOPRAZOLE 40 MG TAB PO SCH (09:22)
[2021-11-22] MEDS: SERTRALINE 100 MG TAB PO SCH (09:22)
[2021-11-22] MEDS: FUROSEMIDE 20 MG TAB PO SCH (09:22)
[2021-11-22] MEDS: DIVALPROEX DR 125 MG TAB PO SCH ×3 (09:22→20:41)
[2021-11-22] MEDS: ARIPiprazole 15 MG TAB PO SCH (09:22)
[2021-11-22] MEDS: MELOXICAM 7.5 MG TAB PO SCH (09:23)
[2021-11-22] MEDS: TIOTROPIUM 18 MCG CAP INHALATION IH SCH (09:23)
[2021-11-22] MEDS: LISINOPRIL 40 MG TAB PO SCH (09:28)
--- NOTE | 2021-11-22 11:25 | Progress Note ---
Subjective Date of service: 11/22/21 Principal diagnosis: Bipolar Disorder Subjective Comment: The patient was seen today. She denies SI/HI or hallucinations of any kind. Yesterday she expressed feeling depressed but denies today. 11/21 The patient was seen today. She is lying in bed. She says she still feels "a little depressed but much better." She denies SI/HI or hallucinations of any kine. 11/20 The patient was seen today. She is asking about going home. I spoke to the patient and encouraged her to not withdraw to her room, and be more participating during group. She says she has bee participating. The patient denies SI/HI. She states she hears stuff in her room at night. She says "but it's okay. Don't worry about it. I think maybe it's just people talking in the [place]."' 11/19 The patient was seen today. She says she feels a little depressed. She denies SI/HI or hallucinations. The patient is asking to back to her room. She says "I'm worn out." 11/18/21: The patient was seen in her room; she continues to isolate. She states depression as 7/10. She denies any current suicidal/homicidal and denies hallucinations. 11/17/21: The patient was seen at breakfast. The patient is isolative. Continues to endorse depression rating as 6/10. She denies any current suicidal/homicidal and denies hallucinations. 11/16/21: The patient was seen resting in bed. She states she is not doing well today. Continues to endorse depression rating as 7/10. She denies any current suicidal/homicidal and denies hallucinations. 11/15/21: The patient was seen this morning. She states she is doing well. She reports sleep and appetite as good. She reports being depressed and rates as 7/10. The patient complains of constipation stating she last had a bowel movement 4 days ago. She denies any current suicidal/homicidal and denies hallucinations. REVIEW OF SYSTEMS Constitutional: Negative for weight loss ENT: Negative for stridor Respiratory: Negative for cough or hemoptysis All other systems reviewed and are negative MENTAL STATUS EXAMINATION General Appearance and Behavior: Age appropriate, good hygiene, wearing appropriate clothes, calm, cooperative Cooperation: Participating/engaged Psychomotor Behavior: Tremors Mood: depressed Affect and affective range: congruent with mood Thought Process: Goal directed Thought Content: Reality oriented Speech: Normal volume, Regular rate and rhythm, Suicidal Ideation: Denies Homicidal Ideation: Denies Hallucinations: Denies Delusions: None elicited Impulse Control: impaired Insight and Judgment: poor insight and judgment, Memory: abnormal Attention: Normal Orientation: Alert, oriented Assessment and Plan (1) Bipolar Disorder Current Visit: Yes Status: Acute Treatment Plan Patient admitted for inpatient psychiatric evaluation, medication adjustment and close monitoring The patient's behavior, mood, sleep and appetite will be closely monitored. Patient enrolled in individual and group therapeutic sessions and encouraged to attend. Patient provided with a safe and structured environment. Patient's physical health needs will be addressed by the Hospitalist. Hospitalist Consulted Labs including CBC, CMP, Lipid profile and Hemoglobin A1C levels ordered for baseline reference Social Assessment will be completed and the Double End Production Grinder will work with patient and family to ensure a suitable and safe disposition Medication adjustment will be made as clinically indicated Abilify 15mg po daily yesterday Depakote Dr 125mg po TID Usual Wellness Jainism/Preservation: - Start Trazodone 50 mg po QHS & 50 mg po QHS PRN between 10 PM & 2 AM for insomnia - Start Melatonin 5 mg po QHS to promote circadian rhythm The patient agreed on the treatment plan, understood the risk, benefit, alternative treatment, potential consequence of no treatment, and gave informed consent. Estimated days: Post hospital care: primary care provider, psychiatric provider Case staffed with Dr. Villatoro Medications and Allergies Allergies Allergy/AdvReac Type Severity Reaction Status Date / Time No Known Allergies Allergy Verified 11/12/21 00:28 Home Medications Medication Instructions Recorded Confirmed Last Taken Type Albuterol Sulfate [Proair 2 puff IH Q4HR PRN 11/12/21 11/12/21 Unknown History Digihaler] AtorvaSTATin [Lipitor] 20 mg PO QHS 11/12/21 11/12/21 Unknown History Dexlansoprazole [Dexilant] 60 mg PO QDAY 11/12/21 11/12/21 Unknown History Furosemide [Lasix] 20 mg PO QDAY 11/12/21 11/12/21 Unknown History Meloxicam [Mobic] 15 mg PO DAILY 11/12/21 11/12/21 Unknown History Sertraline [Zoloft] 100 mg PO QDAY 11/12/21 11/12/21 Unknown History lisinopriL [Zestril TAB] 40 mg PO QDAY 11/12/21 11/12/21 Unknown History Tiotropium [Spiriva] 2 mcg IH DAILY 11/13/21 11/13/21 Unknown History Active Meds: Active Medications Acetaminophen (Acetaminophen 325 Mg Tab) 650 mg PO Q6H PRN PRN Reason: Pain, Mild (1-3) Last Admin: 11/16/21 15:40 Dose: 650 mg Albuterol (Albuterol 2.5 Mg/3 Ml Nebu) 2.5 mg IH Q4HRT PRN PRN Reason: Shortness Of Breath Last Admin: 11/13/21 12:45 Dose: 2.5 mg Aripiprazole (Aripiprazole 15 Mg Tab) 15 mg PO QDAY [facility] Last Admin: 11/22/21 09:22 Dose: 15 mg Atorvastatin Calcium (Atorvastatin 20 Mg Tab) 20 mg PO QHS [facility] Last Admin: 11/21/21 21:36 Dose: 20 mg Bisacodyl (Bisacodyl 5 Mg Tab) 10 mg PO QDAY PRN PRN Reason: Constipation Last Admin: 11/17/21 10:44 Dose: 10 mg Divalproex Sodium (Divalproex Dr 125 Mg Tab) 125 mg PO TID [facility] Last Admin: 11/22/21 09:22 Dose: 125 mg Furosemide (Furosemide 20 Mg Tab) 20 mg PO QDAY [facility] Last Admin: 11/22/21 09:22 Dose: 20 mg Lisinopril (Lisinopril 40 Mg Tab) 40 mg PO QDAY [facility] Last Admin: 11/22/21 09:28 Dose: Not Given Magnesium Hydroxide (Magnesium Hydroxide (Mom) Oral Liqd Udc) 30 ml PO QDAY PRN PRN Reason: Constipation Melatonin (Melatonin 5 Mg Tab) 5 mg PO QHS PRN PRN Reason: Insomnia Last Admin: 11/21/21 21:39 Dose: 5 mg Meloxicam (Meloxicam 7.5 Mg Tab) 15 mg PO QDAY [facility] Last Admin: 11/22/21 09:23 Dose: 15 mg Pantoprazole Sodium (Pantoprazole 40 Mg Tab) 40 mg PO DAILY [facility] Last Admin: 11/22/21 09:22 Dose: 40 mg Sertraline HCl (Sertraline 100 Mg Tab) 100 mg PO QDAY [facility] Last Admin: 11/22/21 09:22 Dose: 100 mg Tiotropium [place] (Tiotropium 18 Mcg Cap Inhalation) 1 puff IH Q24HRT [facility] Last Admin: 11/22/21 09:23 Dose: 1 puff Results - Results Labs/Vitals: Last Vital Signs Temp 98.5 F 11/21/21 19:41 Pulse 75 11/21/21 19:41 Resp 17 11/21/21 19:41 BP 108/45 11/22/21 09:28 Pulse Ox 97 11/21/21 19:41
--- NOTE | 2021-11-22 17:46 | Progress Note ---
Assessment and Plan Assessment and plan: --Angry and agitated; Explained to the patient that the psychiatrist Will discuss with her the discharge planning tomorrow morning during rounds. She verbalized understanding --QASIM (generalized anxiety disorder) Benzodiazepine therapy as clinically indicated. Management per psych -- MDD (major depressive disorder) Supportive care, continue medical management as per mental health team -- COPD (chronic obstructive pulmonary disease) Supportive care, pulmonary toilet, supplemental oxygen as clinically indicated. --HTN (hypertension) Monitor blood pressure nightly. Continue medical management. --Constipation; resolved Plenty of oral fluids, stool softeners as needed --Advance care planning Plan of care reviewed with patient and her nurse Will monitor closely and adjust management as needed Continue current management Plan of care discussed in detail with the patient and her nurse Call us with questions History Interval history: I have seen and examined the patient in the day room Patient's chart and medications reviewed No new events reported by the nursing staff Patient is very angry and really upset and wants to go home Vital signs noted Hospitalist Physical - Constitutional Vitals: Temp Pulse Resp BP Pulse Ox 98.2 F 70 20 108/45 98 11/22/21 09:19 11/22/21 09:19 11/22/21 09:19 11/22/21 09:28 11/22/21 09:19 General appearance: Present: mild distress, well-nourished, obese (Morbidly obese), other (Angry and upset) - EENT Eyes: Present: PERRL, EOM intact - Neck Neck: Present: other (Refused physical exam) - Respiratory Respiratory effort: other (Refused physical exam) - Cardiovascular Rhythm: other (Refused physical exam) - Extremities Extremity abnormal: other (Refused physical exam) - Abdominal General gastrointestinal: other (Refused physical exam) - Psychiatric Psychiatric: other (Refused physical exam) - Neurologic Neurologic: other (Refused physical exam) Results Dyer/IV: Voiding Method Toilet Active Medications - Current Medications Current Medications: Generic Name Dose Route Start Last Admin Trade Name Freq PRN Reason Stop Dose Admin Acetaminophen 650 mg 11/13/21 20:58 11/16/21 15:40 Acetaminophen 325 Mg Tab PO 650 mg Q6H PRN Administration Pain, Mild (1-3) Albuterol 2.5 mg 11/12/21 12:00 11/13/21 12:45 Albuterol 2.5 Mg/3 Ml Nebu IH 2.5 mg Q4HRT PRN Administration Shortness Of Breath Aripiprazole 15 mg 11/20/21 10:00 11/22/21 09:22 Aripiprazole 15 Mg Tab PO 15 mg QDAY ROSARIO Administration Atorvastatin Calcium 20 mg 11/12/21 22:00 11/21/21 21:36 Atorvastatin 20 Mg Tab PO 20 mg QHS ROSARIO Administration Bisacodyl 10 mg 11/15/21 10:00 11/17/21 10:44 Bisacodyl 5 Mg Tab PO 10 mg QDAY PRN Administration Constipation Divalproex Sodium 125 mg 11/19/21 14:00 11/22/21 14:[address] 125 Mg Tab PO 125 mg TID ROSARIO Administration Furosemide 20 mg 11/12/21 11:00 11/22/21 09:22 Furosemide 20 Mg Tab PO 20 mg QDAY ROSARIO Administration Lisinopril 40 mg 11/12/21 11:00 11/22/21 09:28 Lisinopril 40 Mg Tab PO Not Given QDAY ROSARIO Magnesium Hydroxide 30 ml 11/16/21 18:02 Magnesium Hydroxide (Mom) Oral Liqd Udc PO QDAY PRN Constipation Melatonin 5 mg 11/17/21 04:00 11/21/21 21:39 Melatonin 5 Mg Tab PO 5 mg QHS PRN Administration Insomnia Meloxicam 15 mg 11/12/21 11:00 11/22/21 09:23 Meloxicam 7.5 Mg Tab PO 15 mg QDAY ROSARIO Administration Pantoprazole Sodium 40 mg 11/12/21 11:00 11/22/21 09:22 Pantoprazole 40 Mg Tab PO 40 mg DAILY ROSARIO Administration Sertraline HCl 100 mg 11/12/21 11:00 11/22/21 09:22 Sertraline 100 Mg Tab PO 100 mg QDAY ROSARIO Administration Tiotropium [place] 1 puff 11/14/21 09:00 11/22/21 09:23 Tiotropium 18 Mcg Cap Inhalation IH 1 puff Q24HRT ROSARIO Administration Nutrition/Malnutrition Assess - Dietary Evaluation Nutrition/Malnutrition Findings: Nutrition Notes Start: 11/19/21 12:33 Freq: Status: Active Protocol: Document 11/19/21 12:33 NHALL (Rec: 11/19/21 12:36 NHALL [id number]) Nutrition Notes Need for Assessment generated from: LOS Initial or Follow up Brief Note Current Diet Regular Height 5 ft 3 in Weight 128.8 kg [place] Body Weight (kg) 52.27 BMI 50.3 Weight Status Morbidly Obese Subjective/Other Information Pt screened for LOS. She has consumed 88% of meals since admission. Percent of energy/protein needs met: 100% energy and pro Burn Absent Trauma Absent Minimum of two criteria No Is patient on ventilator? No Is Patient Ambulatory and/or Out of Bed Yes REE-([facility]-ambulatory/OOB) [ 2401.269 NUTR.MSJOOB] Kcal/Kg value to use for calculation 14 Approximate Energy Requirements Using 1803 kcal/Kg Calculation Used for Recommendations Kcal/kg Additional Notes Pro needs 0.8-1g/kg adjBW: 72- 91g/day Fluid needs 1ml/kcal Nutrition Intervention Revisit per MD consult or patient Sign Off request:
[2021-11-22] MEDS: MELATONIN 5 MG TAB PO PRN (20:41)
[2021-11-23] MEDS: DIVALPROEX DR 125 MG TAB PO SCH ×3 (07:58→21:12)
[2021-11-23] MEDS: PANTOPRAZOLE 40 MG TAB PO SCH (09:26)
[2021-11-23] MEDS: SERTRALINE 100 MG TAB PO SCH (09:26)
[2021-11-23] MEDS: FUROSEMIDE 20 MG TAB PO SCH (09:26)
[2021-11-23] MEDS: ARIPiprazole 15 MG TAB PO SCH (09:26)
[2021-11-23] MEDS: TIOTROPIUM 18 MCG CAP INHALATION IH SCH (09:26)
[2021-11-23] MEDS: MELOXICAM 7.5 MG TAB PO SCH (09:27)
[2021-11-23] MEDS: LISINOPRIL 40 MG TAB PO SCH (09:27)
--- NOTE | 2021-11-23 09:38 | Progress Note ---
Subjective Date of service: 11/23/21 Principal diagnosis: Bipolar Disorder Subjective Comment: The patient was seen today. She says she is feeling herself and ready to go home. I encouraged her that I wanted her to participate in group and she would be discharged tomorrow. She agrees with this plan. The patient denies SI/hI or hallucinations of any kind. 11/22 The patient was seen today. She denies SI/HI or hallucinations of any kind. Yesterday she expressed feeling depressed but denies today. 11/21 The patient was seen today. She is lying in bed. She says she still feels "a little depressed but much better." She denies SI/HI or hallucinations of any kine. 11/20 The patient was seen today. She is asking about going home. I spoke to the patient and encouraged her to not withdraw to her room, and be more p articipating during group. She says she has bee participating. The patient denies SI/HI. She states she hears stuff in her room at night. She says "but it's okay. Don't worry about it. I think maybe it's just people talking in the [place]."' 11/19 The patient was seen today. She says she feels a little depressed. She denies SI/HI or hallucinations. The patient is asking to back to her room. She says "I'm worn out." 11/18/21: The patient was seen in her room; she continues to isolate. She states depression as 7/10. She denies any current suicidal/homicidal and denies hallucinations. 11/17/21: The patient was seen at breakfast. The patient is isolative. Continues to endorse depression rating as 6/10. She denies any current suicidal/homicidal and denies hallucinations. 11/16/21: The patient was seen resting in bed. She states she is not doing well today. Continues to endorse depression rating as 7/10. She denies any current suicidal/homicidal and denies hallucinations. 11/15/21: The patient was seen this morning. She states she is doing well. She reports sleep and appetite as good. She reports being depressed and rates as 7/10. The patient complains of constipation stating she last had a bowel movement 4 days ago. She denies any current suicidal/homicidal and denies hallucinations. REVIEW OF SYSTEMS Constitutional: Negative for weight loss ENT: Negative for stridor Respiratory: Negative for cough or hemoptysis All other systems reviewed and are negative MENTAL STATUS EXAMINATION General Appearance and Behavior: Age appropriate, good hygiene, wearing appropriate clothes, calm, cooperative Cooperation: Participating/engaged Psychomotor Behavior: Tremors Mood: depressed Affect and affective range: congruent with mood Thought Process: Goal directed Thought Content: Reality oriented Speech: Normal volume, Regular rate and rhythm, Suicidal Ideation: Denies Homicidal Ideation: Denies Hallucinations: Denies Delusions: None elicited Impulse Control: impaired Insight and Judgment: poor insight and judgment, Memory: abnormal Attention: Normal Orientation: Alert, oriented Assessment and Plan (1) Bipolar Disorder Current Visit: Yes Status: Acute Treatment Plan Patient admitted for inpatient psychiatric evaluation, medication adjustment and close monitoring The patient's behavior, mood, sleep and appetite will be closely monitored. Patient enrolled in individual and group therapeutic sessions and encouraged to attend. Patient provided with a safe and structured environment. Patient's physical health needs will be addressed by the Hospitalist. Hospitalist Consulted Labs including CBC, CMP, Lipid profile and Hemoglobin A1C levels ordered for baseline reference Social Assessment will be completed and the Film Waxer will work with patient and family to ensure a suitable and safe disposition Medication adjustment will be made as clinically indicated Abilify 15mg po daily yesterday Depakote Dr 125mg po TID Usual Wellness Cheondoism/Preservation: - Start Trazodone 50 mg po QHS & 50 mg po QHS PRN between 10 PM & 2 AM for insomnia - Start Melatonin 5 mg po QHS to promote circadian rhythm The patient agreed on the treatment plan, understood the risk, benefit, alternative treatment, potential consequence of no treatment, and gave informed consent. Estimated days: Post hospital care: primary care provider, psychiatric provider Case staffed with Dr. Villatoro Medications and Allergies Allergies Allergy/AdvReac Type Severity Reaction Status Date / Time No Known Allergies Allergy Verified 11/12/21 00:28 Home Medications Medication Instructions Recorded Confirmed Last Taken Type Albuterol Sulfate [Proair 2 puff IH Q4HR PRN 11/12/21 11/12/21 Unknown History Digihaler] AtorvaSTATin [Lipitor] 20 mg PO QHS 11/12/21 11/12/21 Unknown History Dexlansoprazole [Dexilant] 60 mg PO QDAY 11/12/21 11/12/21 Unknown History Furosemide [Lasix] 20 mg PO QDAY 11/12/21 11/12/21 Unknown History Meloxicam [Mobic] 15 mg PO DAILY 11/12/21 11/12/21 Unknown History Sertraline [Zoloft] 100 mg PO QDAY 11/12/21 11/12/21 Unknown History lisinopriL [Zestril TAB] 40 mg PO QDAY 11/12/21 11/12/21 Unknown History Tiotropium [Spiriva] 2 mcg IH DAILY 11/13/21 11/13/21 Unknown History Active Meds: Active Medications Acetaminophen (Acetaminophen 325 Mg Tab) 650 mg PO Q6H PRN PRN Reason: Pain, Mild (1-3) Last Admin: 11/16/21 15:40 Dose: 650 mg Albuterol (Albuterol 2.5 Mg/3 Ml Nebu) 2.5 mg IH Q4HRT PRN PRN Reason: Shortness Of Breath Last Admin: 11/13/21 12:45 Dose: 2.5 mg Aripiprazole (Aripiprazole 15 Mg Tab) 15 mg PO QDAY [facility] Last Admin: 11/23/21 09:26 Dose: 15 mg Atorvastatin Calcium (Atorvastatin 20 Mg Tab) 20 mg PO QHS [facility] Last Admin: 11/22/21 21:05 Dose: 20 mg Bisacodyl (Bisacodyl 5 Mg Tab) 10 mg PO QDAY PRN PRN Reason: Constipation Last Admin: 11/17/21 10:44 Dose: 10 mg Divalproex Sodium (Divalproex Dr 125 Mg Tab) 125 mg PO TID [facility] Last Admin: 11/23/21 07:58 Dose: 125 mg Furosemide (Furosemide 20 Mg Tab) 20 mg PO QDAY [facility] Last Admin: 11/23/21 09:26 Dose: Not Given Lisinopril (Lisinopril 40 Mg Tab) 40 mg PO QDAY [facility] Last Admin: 11/23/21 09:27 Dose: Not Given Magnesium Hydroxide (Magnesium Hydroxide (Mom) Oral Liqd Udc) 30 ml PO QDAY PRN PRN Reason: Constipation Melatonin (Melatonin 5 Mg Tab) 5 mg PO QHS PRN PRN Reason: Insomnia Last Admin: 11/22/21 20:41 Dose: 5 mg Meloxicam (Meloxicam 7.5 Mg Tab) 15 mg PO QDAY [facility] Last Admin: 11/23/21 09:27 Dose: 15 mg Pantoprazole Sodium (Pantoprazole 40 Mg Tab) 40 mg PO DAILY [facility] Last Admin: 11/23/21 09:26 Dose: 40 mg Sertraline HCl (Sertraline 100 Mg Tab) 100 mg PO QDAY [facility] Last Admin: 11/23/21 09:26 Dose: 100 mg Tiotropium [place] (Tiotropium 18 Mcg Cap Inhalation) 1 puff IH Q24HRT [facility] Last Admin: 11/23/21 09:26 Dose: Not Given Results - Results Labs/Vitals: Last Vital Signs Temp 97.4 F L 11/22/21 19:42 Pulse 80 11/22/21 19:42 Resp 18 11/22/21 19:42 BP 121/75 11/22/21 19:42 Pulse Ox 98 11/22/21 19:42
--- NOTE | 2021-11-23 11:07 | Progress Note ---
Assessment and Plan - Patient Problems (1) COPD (chronic obstructive pulmonary disease) Current Visit: Yes Status: Acute Plan to address problem: Supportive care, pulmonary toilet, supplemental oxygen as clinically indicated. (2) HTN (hypertension) Current Visit: Yes Status: Acute Qualifiers: Hypertension type: primary hypertension Qualified Code(s): I10 - Essential (primary) hypertension Plan to address problem: Monitor blood pressure nightly. Continue medical management. (3) QASIM (generalized anxiety disorder) Current Visit: Yes Status: Acute Plan to address problem: Benzodiazepine therapy as clinically indicated. (4) MDD (major depressive disorder) Current Visit: Yes Status: Acute Qualifiers: Major depression episode severity: unspecified Plan to address problem: Supportive care, continue medical management as per mental health team (5) Advance care planning Current Visit: Yes Status: Acute Plan to address problem: Disease education conducted, care plan discussed, diagnoses discussed, prognosis discussed, patient is full code. Patient knowledges understanding agreement with care plan, +30 minutes. History Interval history: 56 YO Female with COPD, HTN, HLD, OA, QASIM, MDD, GERD admitted to [facility] for psychiatric stabilization. Consult placed with Dr. Appiah for medical management. Patient seen and evaluated in the recreation room. Patient denies fever, chills, chest pain, palpitation, productive cough, skin rash, recent contact, known exposure to COVID-19. Patient resting comfortably. No reported nursing events. Hospitalist Physical - Constitutional Vitals: Temp Pulse Resp BP Pulse Ox 97.4 F L 80 18 121/75 98 11/22/21 19:42 11/22/21 19:42 11/22/21 19:42 11/22/21 19:42 11/22/21 19:42 General appearance: Present: mild distress, well-nourished, obese (Morbidly obese), other (Angry and upset) Results Dyer/IV: Voiding Method Toilet Active Medications - Current Medications Current Medications: Generic Name Dose Route Start Last Admin Trade Name Freq PRN Reason Stop Dose Admin Acetaminophen 650 mg 11/13/21 20:58 11/16/21 15:40 Acetaminophen 325 Mg Tab PO 650 mg Q6H PRN Administration Pain, Mild (1-3) Albuterol 2.5 mg 11/12/21 12:00 11/13/21 12:45 Albuterol 2.5 Mg/3 Ml Nebu IH 2.5 mg Q4HRT PRN Administration Shortness Of Breath Aripiprazole 15 mg 11/20/21 10:00 11/23/21 09:26 Aripiprazole 15 Mg Tab PO 15 mg QDAY ROSARIO Administration Atorvastatin Calcium 20 mg 11/12/21 22:00 11/22/21 21:05 Atorvastatin 20 Mg Tab PO 20 mg QHS ROSARIO Administration Bisacodyl 10 mg 11/15/21 10:00 11/17/21 10:44 Bisacodyl 5 Mg Tab PO 10 mg QDAY PRN Administration Constipation Divalproex Sodium 125 mg 11/19/21 14:00 11/23/21 07:[address] 125 Mg Tab PO 125 mg TID [facility] Administration Furosemide 20 mg 11/12/21 11:00 11/23/21 09:26 Furosemide 20 Mg Tab PO Not Given QDAY [facility] Lisinopril 40 mg 11/12/21 11:00 11/23/21 09:27 Lisinopril 40 Mg Tab PO Not Given QDAY [facility] Magnesium Hydroxide 30 ml 11/16/21 18:02 Magnesium Hydroxide (Mom) Oral Liqd Udc PO QDAY PRN Constipation Melatonin 5 mg 11/17/21 04:00 11/22/21 20:41 Melatonin 5 Mg Tab PO 5 mg QHS PRN Administration Insomnia Meloxicam 15 mg 11/12/21 11:00 11/23/21 09:27 Meloxicam 7.5 Mg Tab PO 15 mg QDAY [facility] Administration Pantoprazole Sodium 40 mg 11/12/21 11:00 11/23/21 09:26 Pantoprazole 40 Mg Tab PO 40 mg DAILY [facility] Administration Sertraline HCl 100 mg 11/12/21 11:00 11/23/21 09:26 Sertraline 100 Mg Tab PO 100 mg QDAY [facility] Administration Tiotropium [place] 1 puff 11/14/21 09:00 11/23/21 09:26 Tiotropium 18 Mcg Cap Inhalation IH Not Given Q24HRT [facility] Nutrition/Malnutrition Assess - Dietary Evaluation Nutrition/Malnutrition Findings: Nutrition Notes Start: 11/19/21 12:33 Freq: Status: Active Protocol: Document 11/19/21 12:33 ALLISON (Rec: 11/19/21 12:36 ALLISON [id number]) Nutrition Notes Need for Assessment generated from: LOS Initial or Follow up Brief Note Current Diet Regular Height 5 ft 3 in Weight 128.8 kg [place] Body Weight (kg) 52.27 BMI 50.3 Weight Status Morbidly Obese Subjective/Other Information Pt screened for LOS. She has consumed 88% of meals since admission. Percent of energy/protein needs met: 100% energy and pro Burn Absent Trauma Absent Minimum of two criteria No Is patient on ventilator? No Is Patient Ambulatory and/or Out of Bed Yes REE-([place]-ambulatory/OOB) [ 2401.269 NUTR.MSJOOB] Kcal/Kg value to use for calculation 14 Approximate Energy Requirements Using 1803 kcal/Kg Calculation Used for Recommendations Kcal/kg Additional Notes Pro needs 0.8-1g/kg adjBW: 72- 91g/day Fluid needs 1ml/kcal Nutrition Intervention Revisit per MD consult or patient Sign Off request:
[2021-11-23] MEDS: MELATONIN 5 MG TAB PO PRN (21:12)
[2021-11-23 21:37] VITALS: BP 113/42
--- NOTE | 2021-11-24 08:56 | Discharge Summary ---
Providers - Providers Date of Admission: 11/12/21 01:55 Date of discharge: 11/24/21 Attending physician: LINDA PABLO MD 11/12/21 00:29 Consult to Physician [CONS] Routine Comment: Consulting Provider: BAL RICH Physician Instructions: Reason For Exam: New admission 11/14/21 11:22 Physical Therapy Evaluation and Treat [CONS] Routine Comment: Reason For Exam: eval and treat Hospitalization Reason for admission: depression Admitting Diagnosis: F31.9 - BIPOLAR DISORDER, UNSPECIFIED Hospital course: The patient was provided inpatient psychiatric treatment with safe and supportive environment, group/individual therapy, psychiatric medication, medication adjustment, adverse effect monitor, medical evaluation, medical esther atment, social service assessment, social support meeting, placement assessment and psycho-education. The patients mood, cognition, behavior, motivation, compliance to treatment and appreciation on family/social support are improved and stabilized. At the time of discharge, the patient had no suicidal ideas, no homicidal ideas, no aggressive thoughts, no endangering behavior and no debilitating adverse effects. The patient agreed on the treatment plan, understood the risk, benefit, alternative treatment, potential consequence of no treatment, and gave informed consent. 11/24 The patient was seen today. She is in an upbeat mood. She is ready for discharge home. She denies SI/HI or hallucinations of any kind. She says she "feels so much better and ready to get back to my house." 11/23 The patient was seen today. She says she is feeling herself and ready to go home. I encouraged her that I wanted her to participate in group and she woul d be discharged tomorrow. She agrees with this plan. The patient denies SI/hI or hallucinations of any kind. 11/22 The patient was seen today. She denies SI/HI or hallucinations of any kind. Yesterday she expressed feeling depressed but denies today. 11/21 The patient was seen today. She is lying in bed. She says she still feels "a little depressed but much better." She denies SI/HI or hallucinations of any kine. 11/20 The patient was seen today. She is asking about going home. I spoke to the patient and encouraged her to not withdraw to her room, and be more participating during group. She says she has bee participating. The patient denies SI/HI. She states she hears stuff in her room at night. She says "but it's okay. Don't worry about it. I think maybe it's just people talking in the [place]."' 11/19 The patient was seen today. She says she feels a little depressed. She denies SI/HI or hallucinations. The patient is asking to back to her room. She says "I'm worn out." 11/18/21: The patient was seen in her room; she continues to isolate. She states depression as 7/10. She denies any current suicidal/homicidal and denies hallucinations. 11/17/21: The patient was seen at breakfast. The patient is isolative. Continues to endorse depression rating as 6/10. She denies any current suicidal/homicidal and denies hallucinations. 11/16/21: The patient was seen resting in bed. She states she is not doing well today. Continues to endorse depression rating as 7/10. She denies any current suicidal/homicidal and denies hallucinations. 11/15/21: The patient was seen this morning. She states she is doing well. She reports sleep and appetite as good. She reports being depressed and rates as 7/10. The patient complains of constipation stating she last had a bowel movement 4 days ago. She denies any current suicidal/homicidal and denies hallucinations. Disposition: 01 HOME / SELF CARE / HOMELESS Time spent for discharge: 35 Allergies/Adverse Reactions: Allergies No Known Allergies Allergy (Verified 11/12/21 00:28) Vital Signs: Last Vital Signs Temp 98.6 F 11/23/21 21:37 Pulse 69 11/23/21 21:37 Resp 16 11/23/21 21:37 BP 113/42 11/23/21 21:37 Pulse Ox 98 11/23/21 21:37 Core Measure Documentation - Palliative Care Palliative Care/ Comfort Measures: Not Applicable - Core Measures Any of the following diagnoses?: none Exam - Constitutional Vitals: Temp Pulse Resp BP Pulse Ox 98.6 F 69 16 113/42 98 11/23/21 21:37 11/23/21 21:37 11/23/21 21:37 11/23/21 21:37 11/23/21 21:37 General appearance: Present: no acute distress - EENT Eyes: Present: PERRL, EOM intact ENT: hearing intact, clear oral mucosa - Neck Neck: Present: supple, normal ROM - Respiratory Respiratory effort: normal Plan Activity: no restrictions Weight Bearing Status: Weight Bear as Tolerated Care Plan Goals: Maintain good and stable mental health Plan of Treatment: The patient should be compliant with medications, not to use drugs and not to drink alcohol.The patient understands that if suicidal ideas, homicidal ideas, or any endangering thoughts/behavior arise, they should immediately seek for emergent assistance including but not limited to crisis hot line and emergency room. Follow up with outpatient Psychiatrist and PCP within 7 - 14 days of discharge. Assessment: Bipolar Disorder Follow up with: PRIMARY CARE, [Referring] - 7 Days Prescriptions: Melatonin [Melatonin 5MG TAB] 5 mg PO QHS PRN #30 tablet PRN Reason: Insomnia ARIPiprazole [Abilify TAB] 15 mg PO QDAY #[address] [Depakote Dr] 125 mg PO TID #90 tablet
[2021-11-24] MEDS: DIVALPROEX DR 125 MG TAB PO SCH (09:22)
[2021-11-24] MEDS: TIOTROPIUM 18 MCG CAP INHALATION IH SCH (09:23)
[2021-11-24] MEDS: PANTOPRAZOLE 40 MG TAB PO SCH (09:58)
[2021-11-24] MEDS: SERTRALINE 100 MG TAB PO SCH (09:58)
[2021-11-24] MEDS: ARIPiprazole 15 MG TAB PO SCH (09:58)
[2021-11-24] MEDS: MELOXICAM 7.5 MG TAB PO SCH (09:58)
[2021-11-24] MEDS: FUROSEMIDE 20 MG TAB PO SCH (09:58)
[2021-11-24] MEDS: LISINOPRIL 40 MG TAB PO SCH (10:00)
== END 2021-11-24 11:15 | disposition home or self-care (01) | DRG 885 ==
LOC: 3A 11:22 → UNDOADMIN 11:22 → 5A 11-12 01:55
PROVIDERS: ADMIT Psychiatry & Neurology Psychiatry; ATTEND Psychiatry & Neurology Psychiatry
DX: F31.9 Bipolar disorder, unspecified (principal); Z68.43 Body mass index [BMI] 50.0-59.9, adult; J44.9 Chronic obstructive pulmonary disease, unspecified; F41.1 Generalized anxiety disorder; I10 Essential (primary) hypertension; K59.00 Constipation, unspecified; E66.9 Obesity, unspecified; M19.90 Unspecified osteoarthritis, unspecified site; K21.9 Gastro-esophageal reflux disease without esophagitis; E78.5 Hyperlipidemia, unspecified
CPT/HCPCS: 94640; G0378